=== PATIENT | female | born 1990 | race African-American/Black ===

== ENCOUNTER → 2017-11-04 14:46 | Outpatient (CLI) | payer OTHER, SELFPAY ==
[2017-11-04 18:59] LABS: Chlamydia Trachomatis by PCR Negative (Negative); Neisserai gonorrhoeae by PCR Negative (Negative); Probe Check PASS; Sample Adequacy Control PASS; Specimen Processing Control PASS
[2017-11-09 10:28] LABS: HPV Reflexed? NOT INDICATED
== END ==
PROVIDERS: Visit Provider Obstetrics & Gynecology
DX: Z12.4 Encounter for screening for malignant neoplasm of cervix (principal)
CPT/HCPCS: 87491; 87591; 88175; G0145

== ENCOUNTER 2018-09-29 22:14 | Emergency (ER) | payer OTHER, MEDICAID, SELFPAY ==
[2018-09-29 22:15] VITALS: BP 123/55; PULSE 91; RESP 18; TEMP 36.6; O2SAT 99; BMI 31.2
--- NOTE | 2018-09-29 22:35 | ED.DCSUM_ITS ---
- ER Visit Summary Date of Service: 09/29/18 Chief Complaint: Buttocks rash History of Present Illness: The patient is a 28 F who presents the emergency department tonight with a rash on her buttocks. She notes that that she missed several weeks of her oral control pill. She had a prolonged menstrual period. She states that her buttocks started to become itchy and irritated and occasionally burning. She notes that the skin in the gluteal folds became dark. She has been using antibiotic ointment on it. She took a picture of it and friends told her that she should seek physician evaluation. Physical Examination: Afebrile vital signs stable Gen: Well-nourished well-developed Head: Normocephalic atraumatic Eyes: Perrl EOMI ENT: TMs clear no rhinorrhea moist mucous membranes Neck: Supple no lymphadenopathy no JVD nontender CVS: Regular rate rhythm no murmurs normal S1-S2 Respiratory: No distress clear to auscultation bilaterally chest nontender Abdomen: Soft nontender nondistended normal bowel sounds no masses Back: Nontender Extremity: Nontender no edema Skin: In the gluteal fold there is some skin irritation. Some darkening of the skin. There is some mild excoriation Neuro: alert orientated ?3 CN II-XII intact normal strength sensation reflexes gait cerebellar Psych: Normal affect normal mood Emergency Department Course and Treatment: Wonder if there is some component of a yeast dermatitis here. I am going to have her use clotrimazole. Have her follow-up in 1 week. Impression: 1. Yeast candidiasis This note was generated with [employer] dictation software. It may contain incorrect words, spelling, and punctuation that were not noted in review of the chart prior to signing ED Disposition - Plan for ED Patient: Disposition: Home or Assisted Living Instructions: ED Infec Skin Tonia Ch Prescriptions: Clotrimazole [Athlete's Foot] 1 applicatio TP BID 7 Days #60 cream..g. Referrals: Parminder Broussard MD [Primary Care Provider] - 1 Week if not improving
[2018-09-29 22:53] VITALS: BP 123/55; PULSE 91; RESP 18; O2SAT 99
== END 2018-09-29 22:54 | disposition home or self-care (01) ==
LOC: ED 22:47
PROVIDERS: Emergency Provider Emergency Medicine; Family Provider Family Medicine; PCP Family Medicine
DX: B37.2 Candidiasis of skin and nail (principal)
CPT/HCPCS: 99282

== ENCOUNTER → 2019-03-16 | Outpatient (CLI) | payer OTHER, MEDICAID, SELFPAY ==
[2019-03-16 14:12] LABS: Follicle Stimulating Hormone 6.3 mIU/mL; Free T3 2.5 pg/mL (2.18-3.98); Luteinizing Hormone 14.9 mIU/mL; Prolactin 3.1 ng/mL; T4 Free Direct 0.76 ng/dL (0.76-1.46); Thyroid Stim Hormone (TSH) 1.29 uIU/mL (0.358-3.74)
== END | disposition home or self-care (01) ==
LOC: LAB 12:24
PROVIDERS: Family Provider Family Medicine; PCP Family Medicine; Referring Provider Obstetrics & Gynecology; Visit Provider Obstetrics & Gynecology
DX: N91.2 Amenorrhea, unspecified (principal); N92.6 Irregular menstruation, unspecified; Z12.4 Encounter for screening for malignant neoplasm of cervix
CPT/HCPCS: 36415; 83001; 83002; 84146; 84439; 84443; 84481

== ENCOUNTER → 2019-11-23 | Outpatient (CLI) | payer MEDICAID, SELFPAY ==
[2019-10-25 14:06] VITALS: BMI 31.2
[2019-11-23 09:40] LABS: Cholesterol 176 mg/dL (200); Glucose 98 mg/dL (74-106); High Density Lipoprotein 75 mg/dL; Triglycerides 79 mg/dL; Very Low Density Lipoprotein 16 mg/dL (5-40)
[2019-11-23 10:04] LABS: Vitamin D,25 Hydroxy 24.2 ng/mL
== END | disposition home or self-care (01) ==
LOC: LAB 08:33
PROVIDERS: PCP Family Medicine; Referring Provider Obstetrics & Gynecology; Visit Provider Obstetrics & Gynecology
DX: Z13.1 Encounter for screening for diabetes mellitus (principal); Z13.21 Encounter for screening for nutritional disorder; Z13.220 Encounter for screening for lipoid disorders
CPT/HCPCS: 80061; 82306; 82947

== ENCOUNTER 2019-12-11 15:30 | Outpatient (RCR) | payer MEDICAID, SELFPAY ==
[2019-10-25 14:06] VITALS: BMI 31.2
== END 2019-12-18 23:59 ==
LOC: NS 15:30
PROVIDERS: PCP Family Medicine; Visit Provider Obstetrics & Gynecology
DX: Z71.3 Dietary counseling and surveillance (principal); E66.9 Obesity, unspecified; Z68.31 Body mass index [BMI] 31.0-31.9, adult
CPT/HCPCS: 97802; 97803

== ENCOUNTER 2020-01-15 17:29 | Outpatient (RCR) | payer MEDICAID, SELFPAY ==
[2019-10-25 14:06] VITALS: BMI 31.2
[2020-01-01 13:16] VITALS: BMI 31.2
== END 2020-01-18 23:59 ==
LOC: NS 17:29
PROVIDERS: PCP Family Medicine; Visit Provider Obstetrics & Gynecology
DX: E66.9 Obesity, unspecified (principal); Z68.31 Body mass index [BMI] 31.0-31.9, adult
CPT/HCPCS: 97803

== ENCOUNTER 2020-01-30 15:38 | Outpatient (RCR) | payer MEDICAID, SELFPAY ==
[2020-01-01 13:16] VITALS: BMI 31.2
[2020-01-25 08:40] VITALS: BMI 31.2
== END 2020-01-30 23:59 | disposition home or self-care (01) ==
LOC: NS 15:38
PROVIDERS: PCP Family Medicine; Visit Provider Obstetrics & Gynecology
DX: Z71.3 Dietary counseling and surveillance (principal); E66.9 Obesity, unspecified; Z68.31 Body mass index [BMI] 31.0-31.9, adult
CPT/HCPCS: 97803

== ENCOUNTER → 2020-07-14 15:20 | Outpatient (CLI) | payer MEDICAID, SELFPAY ==
[2020-07-14 14:15] VITALS: BMI 30.9
[2020-07-14 16:49] LABS: Absolute Lymphocyte Count 1.65 X10^3/uL (0.83-4.51); Absolute Neutrophil Count 1.8 X10^3/uL (2.0-7.7); Basophil# 0.02 X10^3/uL; Basophil% 0.5 % (0-1); Eosinophil# 0.01 X10^3/uL; Eosinophils% 0.3 % (0-5); Hematocrit 38.7 % (37-47); Hemoglobin 12.3 g/dL (12.0-15.0); Lymphocyte # 1.65 X10^3/ul (4.0); Lymphocyte % 43.9 % (19-41); Mean Corp Hgb Conc 31.8 g/dL (32-36); Mean Corpuscular Hgb 29.6 pg (27.0-32.0); Mean Corpuscular Volume 93.3 fL (81-99); Mean Platelet Vol. 9.4 fl (6.2-12.0); Monocyte# 0.23 X10^3/uL; Monocyte% 6.1 % (0-10); NRBC Flagged by Analyzer 0 % (0-5); Neutrophil # 1.84 X10^3/uL (2.7-7.7); Neutrophil % 48.9 % (47-70); Platelet Count 276 K/mm3 (150-450); RBC Distribution Width SD 44.9 fl (35.1-43.9); Red Blood Count 4.15 M/mm3 (4.2-5.4); White Blood Count 3.8 K/mm3 (4.4-11.0)
[2020-07-14 17:03] LABS: AST(SGOT) 9 U/L (15-37); Alanine Aminotransfer ALT/SGPT 25 U/L (13-56); Albumin, Serum 3.8 g/dL (3.2-5.0); Alkaline Phosphatase 39 U/L (45-117); Anion Gap 6 (5-15); BUN 14 mg/dL (7-18); BUN/Creat Ratio 16.5 RATIO (10-20); Calcium,Total 9.1 mg/dL (8.5-10.1); Chloride 106 mmol/L (98-107); Creatinine, Serum 0.85 mg/dL (0.55-1.02); EST Glomerular Filtration Rate 83 mL/min (>60); Est Glom Filt Rate - Afr Amer 101 mL/min (>60); Globulin 3.8 g/dL (2.2-4.2); Glucose 106 mg/dL (74-106); Potassium 4.1 mmol/L (3.5-5.1); Protein, Total 7.6 g/dL (6.4-8.2); Sodium Level 141 mmol/L (136-145)
[2020-07-14 17:17] LABS: Hemoglobin A1c 5.5 % (3.8-5.6)
== END ==
PROVIDERS: PCP Internal Medicine; Referring Provider Internal Medicine; Visit Provider Internal Medicine
DX: N62 Hypertrophy of breast (principal); Z68.31 Body mass index [BMI] 31.0-31.9, adult
CPT/HCPCS: 36415; 80053; 83036; 85025

== ENCOUNTER → 2021-03-02 | Outpatient (CLI) | payer MEDICAID, SELFPAY ==
[2021-03-05 20:08] LABS: HPV Genotype 16, Aptima Negative (Negative)
[2021-03-05 21:08] LABS: HPV APTIMA, High Risk Positive (Negative); HPV Genotype 18,45 Aptima Positive (Negative)
== END | disposition home or self-care (01) ==
LOC: LABSPEC 13:15
PROVIDERS: PCP Internal Medicine; Visit Provider Obstetrics & Gynecology
DX: Z12.4 Encounter for screening for malignant neoplasm of cervix (principal)
CPT/HCPCS: 87624; 88175; G0145

== ENCOUNTER → 2021-03-04 | Outpatient (CLI) | payer MEDICAID, SELFPAY ==
[2021-03-04 11:06] LABS: Vitamin D,25 Hydroxy 22.6 ng/mL
[2021-03-04 11:22] LABS: Cholesterol 186 mg/dL (200); Glucose 95 mg/dL (74-106); High Density Lipoprotein 90 mg/dL; Thyroid Stim Hormone (TSH) 0.51 uIU/mL (0.358-3.74); Triglycerides 75 mg/dL; Very Low Density Lipoprotein 15 mg/dL (5-40)
== END | disposition home or self-care (01) ==
LOC: LABSPEC 10:12
PROVIDERS: PCP Internal Medicine; Visit Provider Obstetrics & Gynecology
DX: Z13.21 Encounter for screening for nutritional disorder (principal); Z13.220 Encounter for screening for lipoid disorders; Z13.1 Encounter for screening for diabetes mellitus; Z13.29 Encounter for screening for other suspected endocrine disorder
CPT/HCPCS: 36415; 80061; 82306; 82947; 84443

== ENCOUNTER → 2021-03-31 15:34 | Outpatient (CLI) | payer MEDICAID, SELFPAY | PROVIDERS: PCP Internal Medicine; Referring Provider Obstetrics & Gynecology; Visit Provider Obstetrics & Gynecology | DX: R10.2 Pelvic and perineal pain (principal) | CPT/HCPCS: 87086; 87088 ==

== ENCOUNTER → 2021-04-09 11:19 | Outpatient (CLI) | payer MEDICAID, SELFPAY ==
--- NOTE | 2021-04-09 11:20 | US_ITS ---
STUDY: ULTRASOUND OF THE FEMALE PELVIS - COMPLETE REASON FOR EXAM: Female, 31 years old. DYSPARUNIA LMP: TECHNIQUE: Axial and sagittal ultrasound images of the pelvis were obtained transabdominally and transvaginally. TECHNICAL QUALITY: Adequate. COMPARISON: None. FINDINGS: The uterus is retroverted and slightly heterogeneous. It measures 7.4 x 5.8 x 4.5 cm. There is no discrete uterine fibroid. Endometrial stripe measures 0.4 cm in thickness. The right ovary measures 1.5 x 1.1 x 0.6 cm and the left ovary measures 3.8 x 2.6 x 2.1 cm. No focal ovarian lesion is identified on either side. Blood flow to the ovaries was documented. No adnexal masses seen. There is no free fluid in the pelvis. US/Transvaginal Non- IMPRESSION: No discrete uterine fibroid. Unremarkable ovaries. No adnexal mass. Electronically Signed: Humza Lerma MD at 19:28 EDT Tel , Service support ,
--- NOTE | 2021-04-09 11:20 | US_ITS ---
STUDY: ULTRASOUND OF THE FEMALE PELVIS - COMPLETE REASON FOR EXAM: Female, 31 years old. DYSPARUNIA LMP: TECHNIQUE: Axial and sagittal ultrasound images of the pelvis were obtained transabdominally and transvaginally. TECHNICAL QUALITY: Adequate. COMPARISON: None. FINDINGS: The uterus is retroverted and slightly heterogeneous. It measures 7.4 x 5.8 x 4.5 cm. There is no discrete uterine fibroid. Endometrial stripe measures 0.4 cm in thickness. The right ovary measures 1.5 x 1.1 x 0.6 cm and the left ovary measures 3.8 x 2.6 x 2.1 cm. No focal ovarian lesion is identified on either side. Blood flow to the ovaries was documented. No adnexal masses seen. There is no free fluid in the pelvis. US/Pelvic (Non ) IMPRESSION: No discrete uterine fibroid. Unremarkable ovaries. No adnexal mass. Electronically Signed: Humza Lerma MD at 19:28 EDT Tel , Service support ,
== END ==
PROVIDERS: PCP Internal Medicine; Referring Provider Obstetrics & Gynecology; Visit Provider Obstetrics & Gynecology
DX: R10.2 Pelvic and perineal pain (principal)
CPT/HCPCS: 76830; 76856

== ENCOUNTER 2021-04-30 10:45 | Emergency (ER) | payer OTHER, MEDICAID, SELFPAY ==
[2021-04-30 10:46] VITALS: BP 128/82; PULSE 88; RESP 16; TEMP 36.4; O2SAT 100; BMI 29.9
[2021-04-30] MEDS: Diphth,Pertuss(Acell),Tet Vac 0.5 ML Vial IM (11:49)
--- NOTE | 2021-04-30 11:53 | EDS_ITS ---
HPI History of Present Illness HPI Narrative: Patient presents with a laceration to her left thumb that occurred today. Patient states she was using a knife when it slipped and cut her left thumb. Patient is unsure of her last tetanus. Patient states it is over the ulnar aspect of the distal phalanx of her left thumb. Patient describes pain as aching and throbbing. Patient states the bleeding improved with pressure. Patient admits to some numbness and tingling initially but states this is improving. Chief Complaint: Laceration Informant: patient Occured/Mechanism Comment: Accidentally cut with a knife Onset/Context/Timing Onset: Today Context: Sudden Onset Timing: Continuous Quality of Pain: Aching and Throbbing Location: Left thumb Worsened by: Nothing Relieved by: Pressure Associated Symptoms Associated Symptoms: Positive for Parasthesia; Negative for Weakness and Loss of Funtion Narrative Tetanus Immunization: Unknown [facility] Medical History Elevated blood pressure reading without diagnosis of hypertension HPV (human papilloma virus) infection Irregular menses Lab test negative for COVID-19 virus Migraine Vitamin D deficiency Home Medications drospirenone 3 mg-ethinyl estradiol 0.02 mg tablet 1 tab PO QDAY #28 tab 03/02/21 [Rx Last Taken Unknown] cholecalciferol (vitamin D3) 50 mcg (2,000 unit) capsule 50 mcg PO DAILY 03/25/21 [History Last Taken Unknown] phentermine 37.5 mg tablet 37.5 mg PO QDAY #30 tab 03/25/21 [Rx Last Taken Unknown] Allergy/AdvReac Type Severity Reaction Status Date / Time No Known Allergies Allergy Verified 03/31/21 12:31 Family History Father Diabetes Grandmother Diabetes Uncle Diabetes Surgical History Ganglion cyst Social History Smoking Status: Never smoker alcohol intake: current details: social substance use type: does not use caffeine: Yes what type of physical activity do you participate in: none seatbelt use: always do you feel safe at home: Yes additional social history: Dietary at [facility] ROS ROS ED Constitutional Constitutional ED: Denies chills or fever(s) Eyes Eyes: Denies blurry vision or change in vision ENT ENT ED: Denies rhinorrhea or sore throat Cardiovascular Cardiovascular: Denies chest pain or palpitations Respiratory/Chest Respiratory/Chest: Denies cough or dyspnea Gastrointestinal Gastrointestinal: Denies nausea or vomiting Genitourinary Genitourinary ED: Denies dysuria or hematuria Musculoskeletal Musculoskeletal: Denies back pain or neck pain Integumentary Denies abscess or rash Neurologic Neurologic: Denies headache(s) or weakness Allergic/Immunologic Allergic/Immunologic ED: Denies mouth swelling or urticaria EXAM Physical Exam Const Vital Signs: 04/30/21 10:46 Temperature 97.6 F L Temperature Source Temporal Pulse Rate 88 Respiratory Rate 16 Blood Pressure 128/82 H Blood Pressure Mean 97 Pulse Ox 100 Oxygen Delivery Method Room Air Positive well nourished and well developed General Appearance ED: well developed HEENT Reports moist mucous membranes Extremity Extremity Narrative: There is a 1.5 cm full-thickness linear laceration over the ulnar aspect of the distal phalanx of the left thumb. There is minimal bleeding. There is no foreign body noted. There is mild gapping of the wound margins. There is full range of motion of the IP and MP joints. Sensation was intact to light touch in all digits. Capillary refill was less than 2 seconds in all digits. Neuro oriented x3, CN's II-XII intact bilaterally, moves all extremities and no focal motor deficits Sensorium / Orientation: alert MDM MDM MDM Narrative Medical decision making narrative: The wound was cleaned with chlorhexidine. The wound was explored. There were no foreign bodies. There is minimal gapping of the wound margins. The wound was closed with Dermabond skin adhesive. Patient tolerated the procedure well. Patient was given a tetanus booster. Patient was instructed to keep the wound clean and dry. Patient was instructed to follow-up with her primary care physician in 5 to 7 days. Patient understood and was agreeable with the plan. All questions were answered. Procedures Lacerations Left thumb laceration: Depth: Skin Shape: Linear Prep: Sterile Conditions and Chlorhexadine Laceration repair: Dermabond and Wound explored Discharge Plan Triage Chief Complaint: Laceration ED Provider: Sajan Walker Dx/Rx/DC Orders Clinical Impression: Laceration of thumb, left Instructions: ED Laceration, Extremity: Skin Glue Prescriptions: No Action drospirenone-ethinyl estradiol 3-0.02 mg tablet 1 tab PO QDAY Qty: 28 RF: 12 cholecalciferol (vitamin D3) 50 mcg (2,000 unit) capsule 50 mcg PO DAILY RF: 0 phentermine [Adipex-P] 37.5 mg tablet 37.5 mg PO QDAY Qty: 30 RF: 0 Primary Care Provider: Tish Saleem Referrals: Tish Saleem MD [Primary Care Provider] - 3-5 Days Disposition Disposition: Home, Self Care
[2021-04-30 12:14] VITALS: BP 118/74; PULSE 73; RESP 15; O2SAT 98
== END 2021-04-30 12:15 | disposition home or self-care (01) ==
PROVIDERS: Emergency Provider Emergency Medicine; PCP Internal Medicine
DX: S61.012A Laceration without foreign body of left thumb without damage to nail, initial encounter (principal); Z23 Encounter for immunization; W26.0XXA Contact with knife, initial encounter; Y93.89 Activity, other specified; Y92.89 Other specified places as the place of occurrence of the external cause; Y99.0 Civilian activity done for income or pay
CPT/HCPCS: 12001; 90471; 90715; 99282

== ENCOUNTER 2021-08-03 14:55 | Outpatient (CLI) | payer MEDICAID, SELFPAY ==
[2021-08-03 16:43] LABS: Progesterone Level 0.54 ng/mL (See Comment)
== END 2021-08-03 23:59 | disposition home or self-care (01) ==
LOC: LAB 14:56
PROVIDERS: PCP Internal Medicine; Visit Provider Obstetrics & Gynecology
DX: N97.0 Female infertility associated with anovulation (principal)
CPT/HCPCS: 36415; 84144

== ENCOUNTER 2021-10-02 11:18 | Outpatient (CLI) | payer MEDICAID, SELFPAY ==
--- NOTE | 2021-10-02 11:20 | US_ITS ---
STUDY: ULTRASOUND OF THE FEMALE PELVIS - COMPLETE REASON FOR EXAM: Female, 31 years old. Pelvic pain. LMP: 09/25/2021. TECHNIQUE: Transabdominal and Transvaginal TECHNICAL QUALITY: Adequate. COMPARISON: None. FINDINGS: The uterus is retroverted and is in a midline position. The uterus measures 7.4 cm x 6.1 cm x 4.6 cm. Normal uterine cervix. The endometrium measures 8 mm in thickness, and is hyperechoic. There is no demonstrated endometrial mass. The myometrium is heterogeneous suggestive of fibroid change although no focal fibroid is seen. I.U.D. - The patient does not have an I.U.D. The right ovary is visualized. The right ovary measures 3.8 cm x 3.2 cm x 2 cm. There is no right ovarian cyst or ovarian mass. There is no visualized right adnexal mass or complex lesion. There is normal arterial and normal venous vascularity. The left ovary is visualized. The left ovary measures 3.7 cm x 4.7 cm x 1.8 cm. There is no left ovarian cyst or ovarian mass. There is no visualized left adnexal mass or complex lesion. There is normal arterial and normal venous vascularity. There is minimal fluid in the cul-de-sac. The pre void volume of the bladder was 472 ml. US/Pelvic (Non ) IMPRESSION: Heterogeneous echotexture of the myometrium suggestive of fibroid change although no focal fibroid is seen. Electronically Signed: Augie Croft MD at 13:57 EDT ,
--- NOTE | 2021-10-02 11:20 | US_ITS ---
STUDY: ULTRASOUND OF THE FEMALE PELVIS - COMPLETE REASON FOR EXAM: Female, 31 years old. Pelvic pain. LMP: 09/25/2021. TECHNIQUE: Transabdominal and Transvaginal TECHNICAL QUALITY: Adequate. COMPARISON: None. FINDINGS: The uterus is retroverted and is in a midline position. The uterus measures 7.4 cm x 6.1 cm x 4.6 cm. Normal uterine cervix. The endometrium measures 8 mm in thickness, and is hyperechoic. There is no demonstrated endometrial mass. The myometrium is heterogeneous suggestive of fibroid change although no focal fibroid is seen. I.U.D. - The patient does not have an I.U.D. The right ovary is visualized. The right ovary measures 3.8 cm x 3.2 cm x 2 cm. There is no right ovarian cyst or ovarian mass. There is no visualized right adnexal mass or complex lesion. There is normal arterial and normal venous vascularity. The left ovary is visualized. The left ovary measures 3.7 cm x 4.7 cm x 1.8 cm. There is no left ovarian cyst or ovarian mass. There is no visualized left adnexal mass or complex lesion. There is normal arterial and normal venous vascularity. There is minimal fluid in the cul-de-sac. The pre void volume of the bladder was 472 ml. US/Transvaginal Non- IMPRESSION: Heterogeneous echotexture of the myometrium suggestive of fibroid change although no focal fibroid is seen. Electronically Signed: Augie Croft MD at 13:57 EDT ,
== END 2021-10-02 23:59 | disposition home or self-care (01) ==
LOC: US 11:19
PROVIDERS: PCP Internal Medicine; Visit Provider Obstetrics & Gynecology
DX: R10.2 Pelvic and perineal pain (principal)
CPT/HCPCS: 76830; 76856; 93976

== ENCOUNTER → 2022-01-15 | Outpatient (CLI) | payer MEDICAID, SELFPAY ==
[2022-01-15 11:03] LABS: Amphetamine Urine VISTA NEGATIVE (<1000 ng/mL); Barbiturate Urine VISTA NEGATIVE (< 200 ng/mL); Benzodiazepine Urine VISTA NEGATIVE (< 200 ng/mL); Cocaine Urine VISTA NEGATIVE (< 300 ng/mL); Ecstacy Urine VISTA NEGATIVE (< 500 ng/mL); Methadone Urine VISTA NEGATIVE (< 300 ng/mL); PCP Urine VISTA NEGATIVE (< 25 ng/mL); THC Urine VISTA NEGATIVE (< 50 ng/mL); Vista UDS pH Range 6
[2022-01-18 22:06] LABS: Chlamydia By Nucleic Acid AMP Negative (Negative)
[2022-01-18 23:29] LABS: Gonococcus By Nucleic Acid AMP Negative (Negative)
== END | disposition home or self-care (01) ==
LOC: LABSPEC 09:59
PROVIDERS: PCP Internal Medicine; Visit Provider Obstetrics & Gynecology
DX: Z34.90 Encounter for supervision of normal pregnancy, unspecified, unspecified trimester (principal)
CPT/HCPCS: 80307; 87086; 87491; 87591

== ENCOUNTER → 2022-01-21 | Outpatient (CLI) | payer MEDICAID, SELFPAY ==
[2022-01-21 14:52] LABS: Absolute Lymphocyte Count 1.64 X10^3/uL (0.83-4.51); Absolute Neutrophil Count 5.1 X10^3/uL (2.0-7.7); Basophil# 0.02 X10^3/uL; Basophil% 0.3 % (0-1); Eosinophil# 0.02 X10^3/uL; Eosinophils% 0.3 % (0-5); Hematocrit 34.3 % (37-47); Hemoglobin 11.3 g/dL (12.0-15.0); Lymphocyte # 1.64 X10^3/ul (0.83-4.51); Lymphocyte % 22.6 % (19-41); Mean Corp Hgb Conc 32.9 g/dL (32-36); Mean Corpuscular Hgb 29.9 pg (27.0-32.0); Mean Corpuscular Volume 90.7 fL (81-99); Mean Platelet Vol. 9.1 fl (6.2-12.0); Monocyte# 0.41 X10^3/uL; Monocyte% 5.7 % (0-10); NRBC Flagged by Analyzer 0 % (0-5); Neutrophil # 5.07 X10^3/uL (2.7-7.7); Neutrophil % 69.9 % (47-70); Platelet Count 262 K/mm3 (150-450); RBC Distribution Width SD 46.3 fl (35.1-43.9); Red Blood Count 3.78 M/mm3 (4.2-5.4); White Blood Count 7.3 K/mm3 (4.4-11.0)
[2022-01-21 15:29] LABS: Glucose Challenge Gest 1H 50g 149 mg/dL (70-140)
[2022-01-21 16:01] LABS: HIV - WCH Non-Reactive (Nonreactive); Hepatitis B Surface Antigen Non-Reactive (Nonreactive); Hepatitis C Antibody Non-Reactive (Nonreactive); Rubella IgG Reactive (Nonreactive); Syphilis Antibodies Non-reactive
== END | disposition home or self-care (01) ==
LOC: LAB 14:30
PROVIDERS: PCP Internal Medicine; Referring Provider Obstetrics & Gynecology; Visit Provider Obstetrics & Gynecology
DX: O99.210 Obesity complicating pregnancy, unspecified trimester (principal); E66.09 Other obesity due to excess calories; Z68.31 Body mass index [BMI] 31.0-31.9, adult
CPT/HCPCS: 36415; 82950; 85025; 86703; 86762; 86780; 86803; 86850; 86900; 86901; 87340

== ENCOUNTER → 2022-01-25 | Outpatient (CLI) | payer MEDICAID, SELFPAY ==
[2022-01-25 11:35] LABS: NATERA MAILED SPECIMEN
== END | disposition home or self-care (01) ==
LOC: LAB 10:33
PROVIDERS: PCP Internal Medicine; Referring Provider Obstetrics & Gynecology; Visit Provider Obstetrics & Gynecology
DX: Z34.81 Encounter for supervision of other normal pregnancy, first trimester (principal)
CPT/HCPCS: 36415

== ENCOUNTER → 2022-02-12 | Outpatient (CLI) | payer MEDICAID, SELFPAY ==
[2022-02-12 11:39] LABS: Glucose GTT-Gestation. Fasting 89 mg/dL (<105)
[2022-02-12 12:14] LABS: Glucose GTT-Gestational 1 Hr 128 mg/dL (<190)
[2022-02-12 13:00] LABS: Glucose GTT-Gestational 2 Hr 118 mg/dL (<165)
[2022-02-12 14:02] LABS: Glucose GTT-Gestational 3 Hr 113 L (<145)
== END | disposition home or self-care (01) ==
LOC: LAB 10:02
PROVIDERS: PCP Internal Medicine; Referring Provider Obstetrics & Gynecology; Visit Provider Obstetrics & Gynecology
DX: Z13.1 Encounter for screening for diabetes mellitus (principal)
CPT/HCPCS: 36415; 82951; 82952

== ENCOUNTER 2022-03-12 12:00 | Outpatient (RCR) | payer MEDICAID, SELFPAY ==
--- NOTE | 2022-02-05 12:51 | HP.PTEVAL ---
Patient's Visit Information PIERCE AYOUB is a 31 year old F referred to Physical Therapy by Dr. Hazel Schmitz DO with a diagnosis of SCIATICA ,UNSPECIFIED ,ENCOUNTER FOR SUPERVISION NORMAL PREGNANCEY. Date of Evaluation: 02/05/22 Physical Therapist: Mohamud Del Rosario, PT, Cert MDT, OCS - Visit Plan Frequency: 2x /Week Duration: 4 Weeks Plan: NO MODALTIES . PT INTERVETIONS GRADED POSTURAL EX'S ,DLS ,SI JOINT EX'S ,LE STRENGTHNEING/FLEXABLITY AND MHP - Subjective This 31 y/o female presents physical therapy with sciatica pain. Patient is 14 weeks , Patient has had pain since 2nd son from epidural possible. Patient after 2nd ,patient had pain in back symptoms progressively got better, Most recently , developed back pain during this . Pain located left LS radiates to buttock -hamstrings. Seen DR nelson PT. Unable to take MEDS. Aggravating factors standing ,lifting, bending moving affects job demands and housework tasks ,sitting extended Alleviating heat. Denies paresthesia/tingling. Coughing/sneezing-. Bowel/bladder -. Patient pain affects sleeping . Patient pain affects QOL and sleeping . Patient condition with pain affects job demands and housework tasks. SOCIAL: . VOCATION: [employer] Dietary - Pain Left Back Pain Intensity (Out of 10): 9 Left Lower Extremity Pain Intensity (Out of 10): 10 Pain Intensity Range: 10 - Objective POSTURE: mild forward posture. GAIT: reciprocal pattern slow juan pablo antalgic gait. PALPATION: tender SI/LS ,piriformis ,greater trochanteric. NEURO: intact ,reflexes L3-4,L4-5,L4-5 1/3. FLEXABILITY: hamstrings min tight, piriformis mod tight. MMT: quad/hams 4/5 ,peak force hip flexion right 17.7,left 12.3 , hip abduction right 13.8,left 10 .4. SPECIAL TEST: SI compression + ,hip abduction/add isometrics + , - Special Tests L/S Slump test left side: Negative L/S Slump test right side: Negative L/S Left Straight Leg Raise: Negative L/S Right Straight Leg Raise: Negative Lumbar Standing: Flexion - Mechanical Response: No effect Lumbar Standing: Flexion - Symptoms During Testing: Abolishes Lumbar Standing: Flexion - Symptoms After Testing: No worse Comments:: NW Lumbar Standing: Extension - Mechanical Response: No effect Lumbar Standing: Extension - Symptoms During Testing: No effect Lumbar Standing: Extension - Symptoms After Testing: No effect Lumbar Standing: Right Side Glides - Mechanical Response: No effect Lumbar Standing: Right Side [place] - Symptoms During Testing: Increases Lumbar Standing: Right Side [place] - Symptoms After Testing: No worse Lumbar Standing: Left Side [place] - Mechanical Response: No effect Lumbar Standing: Left Side [place] - Symptoms During Testing: Increases Lumbar Standing: Left Side [place] - Symptoms After Testing: No worse - Balance/Special Test Scores Oswestry Low Back Score: 29 - Goals Goal 1:: Patient to be Independent with HEP Goal Time Frame: 4-6 Weeks Goal 2:: Patient to be demonstrate 50% improvement with with decrease pain and improved function. Goal Time Frame: 4-6 Weeks Goal 3:: Patient to be posture for ADL and job demands. Goal Time Frame: 4-6 Weeks Goal 4:: Patient to improve lumbar ROM for function of recovery Goal Time Frame: 4-6 Weeks Goal 5:: Patient to improve back oswestry score by 5 points or > to improve QOL Goal Time Frame: 4-6 Weeks Goal 6:: Patient is able to stand/walk with min limitations 60% to perform ADLS' and job demnads. Goal Time Frame: 4-6 Weeks - Rehabilitation Potential Physical Therapy Diagnosis: This patient who is 14 weeks with pain from being with pain during positioning and positioning , worse standing/walking affecting ADLS and job demands Rehabilitation Potential: Good - Anticipated Interventions Patient/Client Instruction: Educate patient on: Condition, Plan of Care For the Purpose of:: To decrease pain, To increase ROM, To improve muscle performance and motor function, To improve ability to perform ADL's, To increase tolerance to activity/condition/position, To improve ability of physical actions for home/community/work/leisure, To improve health of tissue, To decrease soft tissue restriction, To increase flexibility/ROM, To reduce risk of recurrence, To prevent re-injury, To improve tolerance to ADL's Therapeutic Exercise to Include: Strength training, Postural training, Flexibilty training, Dynamic Lumbar Stabilization Comment: LE For the Purpose of:: To decrease pain, To improve ability to perform ADL's, To increase tolerance to activity/condition/position, To improve ability of physical actions for home/community/work/leisure, To improve health of tissue, To decrease soft tissue restriction, To increase flexibility/ROM, To improve safety with gait, To reduce risk of recurrence, To improve tolerance to ADL's Thank you for the opportunity to evaluate your patient. For Medicare and Medicare HMO plans, please review the plan of care and approve it. It will need to be FAXED BACK to us at [phone] for Medicare purposes. For Medicare only, by signing this I certify the plan of care. Please let me know if there are questions or concerns regarding this plan of care. Physician Signature: Date:
--- NOTE | 2022-06-11 10:39 | HP.PT.NRP ---
PIERCE DUBON was seen in my office for initial evaluation on 02/05/22. The following Plan of Care was established for this patient: Initial Frequency: 2x /Week Initial Duration: 4 Weeks Patient/Client Instruction: Educate patient on: Condition, Plan of Care For the Purpose of:: To decrease pain, To increase ROM, To improve muscle performance and motor function, To improve ability to perform ADL's, To increase tolerance to activity/condition/position, To improve ability of physical actions for home/community/work/leisure, To improve health of tissue, To decrease soft tissue restriction, To increase flexibility/ROM, To reduce risk of recurrence, To prevent re-injury, To improve tolerance to ADL's Therapeutic Exercise to Include: Strength training, Postural training, Flexibilty training, Dynamic Lumbar Stabilization For the Purpose of:: To decrease pain, To improve ability to perform ADL's, To increase tolerance to activity/condition/position, To improve ability of physical actions for home/community/work/leisure, To improve health of tissue, To decrease soft tissue restriction, To increase flexibility/ROM, To improve safety with gait, To reduce risk of recurrence, To improve tolerance to ADL's This patient was last seen in our office . Pertinent comments regarding their Physical therapy will appear below: Patient seen for LBP from being with HEP At this point I will be discontinuing this patient from physical therapy. I would be happy to see this patient again in the future if found appropriate by the physician. Thank you! Mohamud Del Rosario, PT, Cert MDT, OCS Balance/Gait/Functional tests - Balance/Special Test Scores Oswestry Low Back Score: 19
== END 2022-03-12 19:00 | disposition home or self-care (01) ==
LOC: PT 12:00
PROVIDERS: PCP Internal Medicine; Referring Provider Obstetrics & Gynecology; Visit Provider Obstetrics & Gynecology
DX: O99.891 Other specified diseases and conditions complicating pregnancy (principal); M54.30 Sciatica, unspecified side; Z3A.00 Weeks of gestation of pregnancy not specified
CPT/HCPCS: 97110; 97162

== ENCOUNTER → 2022-03-19 | Outpatient (CLI) | payer MEDICAID, SELFPAY ==
--- NOTE | 2022-03-19 14:30 | US_ITS ---
STUDY: SECOND AND THIRD TRIMESTER OBSTETRICAL ULTRASOUND REASON FOR EXAM: Female, 32 years old . anatomy and cervical length. LMP: 10/31/2021 TECHNIQUE: Transabdominal and Transvaginal TECHNICAL QUALITY: Adequate. PRIOR ULTRASOUND: None. FINDINGS: There is a single intrauterine fetus. The fetus is in a cephalic presentation. There is demonstrated cardiac activity with a heart rate of 145 bpm. There is a normal amniotic fluid volume. The largest amniotic fluid pocket measures 4.3 cm x 7.4 cm. The amniotic fluid index (TOÑO) is within normal limits. The placenta is posterior in location and is not low lying. There are Grade 0 placental changes. The cervix measures 3.5 cm in length. The adnexal regions are not visualized. BIOMETRY: BPD: 4.55 cm: 19 weeks, 5 days HC: 17 cm: 19 weeks, 4 days AC: 14.2 cm: 9 weeks, 4 days FL: 3.2 cm: 20 weeks, 0 days CI: 77% FL/BPD: 70.4% FL/HC: FL/AC: 22.6% HC/AC: 1. age by current US: 19 weeks, 4 days. PAWAN by current US: 08/09/2022. Estimated weight: 311 grams, +/- 47 grams, 39.3 %. Age by LMP: 19 weeks, 6 days. PAWAN by LMP: 08/07/2022. ANATOMY: Gender: Female Cranium: Normal lateral ventricles. Normal choroid plexus. Normal cerebellum. Normal cisterna magna. Normal face, nose and lips. Chest: Normal 4-chamber heart. Abdomen/Pelvis: Normal diaphragm. Normal stomach. Normal abdominal wall. Normal cord insertion. Normal 3 vessel cord. Normal kidneys. Normal bladder. Spine: Normal cervical spine. Normal thoracic spine. Normal lumbar spine. Normal sacrum. Extremities: Normal bilateral upper extremities. Normal bilateral lower extremities. IMPRESSION: Single live intrauterine gestation with a mean gestational age of 19 weeks and 4 days. Electronically Signed: Augie Croft MD at 9:11 EDT , STUDY: FIRST TRIMESTER OBSTETRICAL ULTRASOUND REASON FOR EXAM: Female, 32 years old . Cervical length. LMP: 10/31/2021 TECHNIQUE: Transvaginal TECHNICAL QUALITY: Adequate. PRIOR ULTRASOUND: None. FINDINGS: Cervical length measures 3.5 cm. US/OB Anatomy Scan IMPRESSION: Cervical length measures 3.5 cm Electronically Signed: Augie Croft MD at 9:12 EDT ,
== END | disposition home or self-care (01) ==
LOC: US 14:29
PROVIDERS: PCP Internal Medicine; Referring Provider Obstetrics & Gynecology; Visit Provider Obstetrics & Gynecology
DX: Z34.92 Encounter for supervision of normal pregnancy, unspecified, second trimester (principal); Z3A.19 19 weeks gestation of pregnancy
CPT/HCPCS: 76805; 76817

== ENCOUNTER → 2022-05-07 | Outpatient (CLI) | payer MEDICAID, SELFPAY ==
[2022-05-07 11:17] LABS: Absolute Lymphocyte Count 1.11 X10^3/uL (0.83-4.51); Absolute Neutrophil Count 4.4 X10^3/uL (2.0-7.7); Basophil# 0.02 X10^3/uL; Basophil% 0.3 % (0-1); Eosinophil# 0.02 X10^3/uL; Eosinophils% 0.3 % (0-5); Hematocrit 34.9 % (37-47); Hemoglobin 11.3 g/dL (12.0-15.0); Lymphocyte # 1.11 X10^3/ul (0.83-4.51); Lymphocyte % 18.3 % (19-41); Mean Corp Hgb Conc 32.4 g/dL (32-36); Mean Corpuscular Hgb 30.1 pg (27.0-32.0); Mean Corpuscular Volume 93.1 fL (81-99); Mean Platelet Vol. 9.3 fl (6.2-12.0); Monocyte# 0.36 X10^3/uL; NRBC Flagged by Analyzer 0 % (0-5); Neutrophil # 4.36 X10^3/uL (2.7-7.7); Neutrophil % 72.1 % (47-70); Platelet Count 219 K/mm3 (150-450); RBC Distribution Width CV 14.9 % (11.6-14.6); RBC Distribution Width SD 50.7 fl (35.1-43.9); Red Blood Count 3.75 M/mm3 (4.2-5.4); White Blood Count 6.1 K/mm3 (4.4-11.0)
[2022-05-07 11:41] LABS: Glucose Challenge Gest 1H 50g 164 mg/dL (70-140)
[2022-05-07 14:30] LABS: HIV - WCH Non-Reactive (Nonreactive); Syphilis Antibodies Non-reactive
== END | disposition home or self-care (01) ==
LOC: LAB 10:24
PROVIDERS: PCP Internal Medicine; Visit Provider Obstetrics & Gynecology
DX: Z34.90 Encounter for supervision of normal pregnancy, unspecified, unspecified trimester (principal)
CPT/HCPCS: 36415; 82950; 85025; 86703; 86780

== ENCOUNTER 2022-05-21 10:01 | Outpatient (CLI) | payer MEDICAID, SELFPAY ==
[2022-05-21 11:29] LABS: Glucose GTT-Gestation. Fasting 91 mg/dL (<105)
[2022-05-21 12:48] LABS: Glucose GTT-Gestational 1 Hr 163 mg/dL (<190)
[2022-05-21 12:57] LABS: Glucose GTT-Gestational 2 Hr 144 mg/dL (<165)
[2022-05-21 16:21] LABS: Glucose GTT-Gestational 3 Hr 133 L (<145)
== END 2022-05-21 23:59 | disposition home or self-care (01) ==
PROVIDERS: PCP Internal Medicine; Referring Provider Obstetrics & Gynecology; Visit Provider Obstetrics & Gynecology
DX: Z13.1 Encounter for screening for diabetes mellitus (principal)
CPT/HCPCS: 36415; 82951; 82952

== ENCOUNTER 2022-06-26 11:15 | Outpatient (CLI) | payer MEDICAID, SELFPAY ==
[2022-06-26] VITALS (23 sets, daily range): BP systolic 160; BP diastolic 86–93; PULSE 68–109; TEMP 36.8; O2SAT 82–100; BMI 39.9
[2022-06-26 13:14] LABS: Color, Urine Yellow (Yellow); Glucose, Dipstick Normal (Normal); Ketone-Dipstick Negative (Negative); Leukocyte Esterase-Dipstick Negative /ul (Negative); Nitrite-Dipstick Negative (Negative); Occult Blood-Urine 50 /ul (Negative); Protein-Dipstick Negative (Negative); Urine Bilirubin Dipstick Negative (Negative); Urine Clarity Clear (Clear); Urine Urobilinogen Normal (Normal)
--- NOTE | 2022-06-27 06:20 | OB.TRI.PN ---
Progress Notes Progress Note: Patient presents for triage evaluation secondary to dizziness FHT: 150 Moderate variability reactive no decelerations category I tracing [place]: no regular Contractions Assessment and plan: dizziness Reactive NST, reassuring maternal and status patient discharged to home to follow-up as scheduled. See problem list details for additional plan information. Laboratory Studies: Laboratory Tests 06/26/22 Range/Units 13:05 Urine Color Yellow (Yellow) Urine Clarity Clear (Clear) Urine pH 7.0 (5.0 - 8.0) Ur Specific [place] 1.010 (1.002-1.030) Urine Protein Negative (Negative) mg/dl Urine Glucose (UA) Normal (Normal) mg/dl Urine Ketones Negative (Negative) mg/dl Urine Occult Blood 50 H (Negative) /ul Urine Nitrite Negative (Negative) Urine Bilirubin Negative (Negative) mg/dL Urine Urobilinogen Normal (Normal) mg/dl Ur Leukocyte Esterase Negative (Negative) /ul Charges/Coding Procedures Urinary/Genital [id number]: [id number] non-stress test Interp
== END 2022-06-26 14:00 | disposition home or self-care (01) ==
LOC: WPOUT 11:19 → WP 11:20
PROVIDERS: PCP Internal Medicine; Referring Provider Obstetrics & Gynecology; Visit Provider Obstetrics & Gynecology
DX: O26.899 Other specified pregnancy related conditions, unspecified trimester (principal); R42 Dizziness and giddiness; Z3A.00 Weeks of gestation of pregnancy not specified
CPT/HCPCS: 59025; 59050; 81002; 99221; G0378

== ENCOUNTER → 2022-07-12 | Outpatient (CLI) | payer MEDICAID, SELFPAY ==
--- NOTE | 2022-07-12 13:00 | US_ITS ---
STUDY: SECOND AND THIRD TRIMESTER OBSTETRICAL ULTRASOUND - LIMITED REASON FOR EXAM: Female, 32 years old obesity -- 36 weeks LMP: 10/31/2021. PRIOR ULTRASOUND: Comparison is made with prior study dated 03/19/2022. TECHNIQUE: Transabdominal TECHNICAL QUALITY: Adequate. FINDINGS: There is a single intrauterine fetus. The fetus is in a cephalic presentation. There is demonstrated cardiac activity with a heart rate of 152 bpm. There is a normal amniotic fluid volume. The largest amniotic fluid pocket measures 9.6 cm. The amniotic fluid index (TOÑO) is 17.9 cm. The placenta is posterior in location and is not low lying. There are Grade 1 placental changes. The cervix was not measured due to the head position. BIOMETRY: BPD: 9.0 cm: 36 weeks, 3 days HC: 32.6 cm: 37 weeks, 0 days AC: 34.7 cm: 38 weeks, 5 days FL: 7.3 cm: 37 weeks, 2 days Age by LMP: 36 weeks, 2 days. PAWAN by LMP: 08/07/2022. age by prior US: 36 weeks, 0 days. PAWAN by prior US: 08/09/2022. age by current US: 37 weeks, 0 days. PAWAN by current US: 08/02/2022. Estimated weight: 3378 grams, +/- 507 grams, 91 percentile. US/OB Limited With Biometrics IMPRESSION: Single live intrauterine gestation with a mean gestational age of 36 weeks. The measurements obtained today following the normal expected range. Electronically Signed: Augie Croft MD at 15:14 EST ,
== END | disposition home or self-care (01) ==
PROVIDERS: PCP Internal Medicine; Referring Provider Obstetrics & Gynecology; Visit Provider Obstetrics & Gynecology
DX: O99.210 Obesity complicating pregnancy, unspecified trimester (principal); Z3A.36 36 weeks gestation of pregnancy
CPT/HCPCS: 76816; 87077; 87081; 87186

== ENCOUNTER 2022-07-26 18:38 | Outpatient (CLI) | payer MEDICAID, SELFPAY ==
[2022-07-26 18:51] VITALS: BMI 41.8
[2022-07-26 19:08] VITALS: BP 110/53; PULSE 95; TEMP 37
[2022-07-26 19:30] VITALS: BP 120/64; PULSE 99; TEMP 37.2; O2SAT 99
--- NOTE | 2022-07-26 23:48 | OB.TRI.HP_ITS ---
HPI - General HPI Narrative PIERCE DUBON, is a 32 F who presents with decreased FM at at 38+2. Maternal Data Information PAWAN Calculator Estimated Delivery Date Method Current WG Current Estimate 08/07/22 LMP (Certain) 38w 2d Other Estimates 08/03/22 Ultrasound #1 38w 6d 08/11/22 Ultrasound #[address] [facility] Medical History Elevated blood pressure reading without diagnosis of hypertension HPV (human papilloma virus) infection Irregular menses Lab test negative for COVID-19 virus Migraine Vitamin D deficiency Home Medications multivitamin 1 tab PO DAILY prenancy 10/23/21 [History Last Taken 07/26/22 15:00] B.coagulan,subtilis 1 bill. cell-inulin 1 gram-vit C 15 mg chew tablet (Culturelle Probiotic-Prebiotic) 1 tab PO DAILY gut health 07/26/22 [History Last Taken Unknown] lactobacillus combination no.9 4 billion cell capsule (Adult 50 Plus Probiotic) 4,000 mmu cells PO DAILY gut health 07/26/22 [History Last Taken Unknown] Allergy/AdvReac Type Severity Reaction Status Date / Time No Known Allergies Allergy Verified 07/22/22 13:07 Family History Father Diabetes Grandmother Diabetes Uncle Diabetes Surgical History Ganglion cyst Social History adopted: No household members: spouse, family and children number of children: 2 current occupational status: employed current occupation: [employer] Dietary current occupational exposures/hazards: No pets and animals: No history of recent travel: Yes ([place], [place]) out of state: Yes out of country: No sexually active: Yes Smoking Status: Never smoker alcohol intake: former details: social substance use type: does not use caffeine: Yes Type: coffee Number of servings: 1 what type of physical activity do you participate in: none seatbelt use: always do you feel safe at home: Yes additional social history: Dietary at [employer] History 3 Elective abortions Hx Para 2 Spontaneous abortions Hx # Term Pregnancies Ectopic pregnancies Hx # Pregnancies Multiple births # of living children 2 Past Pregnancies Del. Date Name GA/Weeks Outcome Route Bth Weight Gen Labor Lgth Anesthesia Del Locatn Provider FOB Unknown 2009 Lizeth live - full term Unknown 2014 Kenneth Bhandari live - full term Visit Details Expected Delivery Route/Plan Labor Preferences- CB/BF classes: [] labor support person: [] labor intervention preferences: [] pain management options preferred: [] cut cord/dad catch: [] : [] PP control planned: [] discussed possible routes of delivery and associated risks: [] special requests: [] Plans Covid status: [] Flu vaccine: [] Tdap vaccine: declines Rhogam: [] LARC form signed: [] Problem list reviewed and updated with the most current plan of care details and appropriate orders placed. Relevant counseling for the gestational age provided. Continue routine care and follow up unless otherwise noted in visit notes/problem list details OB Flowsheet Initial Weight: Not Recorded Date -?-?-?-?-?-?-?-?-?-?-?-?- EGA Weight BP Urine Prot -?-?-?-?-?-?-?-?-?-?-?-?- Glucose FHR FuHt Pres Dilation -?-?-?-?-?-?-?-?-?-?-?-?- Effaced St Visit Note 01/14/22 -?-?-?-?-?-?-?-?-?-?-?-?- 10w 5d 222 lb 122/80 -?-?-?-?-?-?-?-?-?-?-?-?- -?-?-?-?-?-?-?-?-?-?--?-?- JV- CRL consiste nt with LMP. Pt c/o moderate sciatic nerve pain and requests referral to PT. Declines NIPT/carrier testing. early gct ordered. 01/25/22 -?-?-?-?-?-?--?-?-?-?-?-?- 12w 2d 124/78 Negative -?-?-?-?-?-?-?-?-?-?-?-?- Negative -?-?-?-?-?-?-?-?-?-?-?-?- BP check only an d WNL 02/08/22 -?-?-?-?-?-?-?-?-?-?-?-?- 14w 2d 226 lb 122/80 132/84 Negative -?-?-?-?-?-?-?-?-?-?-?-?- Negative 160 -?-?-?-?-?-?-?-?-?-?-?-?- SM- no vb crampi ng 03/09/22 -?-?-?-?-?-?-?-?-?-?-?-?- 18w 3d 227 lb 6 oz 111/71 -?-?-?-?-?-?-?-?-?-?-?-?- 145 -?-?-?-?-?-?-?-?-?-?-?-?- JV- work note gi lawson for light duty.continue PT. hospital anatomy scan ordered. 04/14/22 -?-?-?-?-?-?-?-?-?-?-?-?- 23w 4d 233 lb 128/64 Negative -?-?-?-?-?-?-?-?--?-?-?-?- Negative 140 -?-?-?-?-?-?-?-?-?-?-?-?- JV- no lof, va g inal bleeding, or dec fm. glucola given. has round ligament pain and other concerns about vaginal burning. abdominal discomfort has resolved. 05/12/22 -?-?-?-?-?-?-?-?-?-?-?-?- 27w 4d 236 lb 2 oz 124/76 Nega tive -?-?-?-?-?-?-?-?-?-?-?-?- Negative 148 30 -?-?-?-?-?-?-?-?-?-?-?-?- JV- pt failed he r 1 hr again, will need 3 hr. has lots of questions. measuring large .will likely order growth ultrasound at 36 weeks or sooner to also assess fluid level. will decide timing of growth scan after 3 hr completed. 05/27/22 -?-?-?-?-?-?-?-?-?-?-?-?- 29w 5d 237 lb 119/70 Negative -?-?--?-?-?-?-?-?-?-?-?-?- Negative 154 32 -?-?-?-?-?-?-?-?-?-?-?-?- JV- no lof, vagi nal bleeding, or dec fm. normal 3 hr. plan for 36 week growth scan. 06/11/22 -?-?-?-?-?-?-?-?-?-?-?-?- 31w 6d 242 lb 6 oz 127/78 Nega tive -?-?-?-?-?-?-?-?-?-?-?-?- Negative 147 33 -?-?-?-?-?-?-?-?-?-?-?-?- JV- no lof, vagi nal bleeding, or dec fm. having shreya roth 06/25/22 -?-?-?-?-?-?-?-?-?-?-?-?- 33w 6d 242 lb 8 oz 119/78 -?-?-?-?-?-?-?-?-?-?-?-?- 160 37 -?-?-?-?-?-?-?-?-?-?-?-?- JV- no lof, vagi nal bleeding, or dec fm. needs weekly nsts for bmi 40 and growth us at 36 weeks suspect LGA 06/30/22 -?-?-?-?-?-?-?-?--?-?-?-?- 34w 4d 240 lb 8 oz 115/74 Nega tive -?-?-?-?-?-?-?-?-?-?-?-?- Negative 150 38 Cephalic -?-?-?-?-?-?-?-?-?-?-?-?- JV- NST reactive today. no complaints. 07/07/22 -?-?-?-?-?-?-?-?-?-?-?-?- 35w 4d 242 lb 8 oz 123/79 Nega tive -?-?-?-?-?-?-?-?-?-?-?-?- Negative 156 39 Cephalic -?-?-?-?-?-?-?-?-?-?-?-?- JV- NST reactive . has growth scan next week. will discuss IOL at 39 weeks pending results of ultrasound. 07/12/22 -?-?-?-?-?-?-?-?-?-?-?-?- 36w 2d Negative -?-?-?-?-?-?-?-?-?-?-?-?- Negative 150 Cephalic -?-?-?-?-?-?-?-?-?-?-?-?- LC- reactive NST . no vb/lof/vb. good fm. having increased sciatic pain. stretches reviewed, epsom salt. LC- reactive NST. no vb/lof/ vb. good fm. having increased sciatic pain. stretches reviewed, epsom salt. getting growth scan today 07/22/22 -?-?-?-?-?-?-?-?-?-?-?-?- 37w 5d 250 lb 8 oz 120/75 Nega tive -?-?-?-?-?-?-?-?-?-?-?-?- Negative 150 42 Cephalic 4 -?-?-?-?-?-?-?-?-?-?-?-?- 70 -2 JV- nst re active. estimated weight on ultrasound at 36 weeks is 7.8 lbs. plan for 39 week IOL (08/03/22) consent signed today. NST FHR Rate Baby A Baseline: 150 Variability:: Moderate Accelerations:: 15 x 15 Decelerations:: None NST Reactive:: Yes FHR Category:: Category I Uterine Activity:: irreg Assessment & Plan (1) : QUALIFIERS: Weeks of gestation: 37 weeks Qualified Code(s): Z3A.37 - 37 weeks gestation of COMMENT: Anatomy US NL. discussed NIPT & Carrier testing patient prefers Doc only (2) Supervision of normal , antepartum: COMMENT: PRR , PAWAN 08/07/21, girl JONELLE Stanley & Kenneth (3) Positive GBS test: COMMENT: PCN in labor (4) Obesity affecting : COMMENT: 1 TM GCT, encourage healthy weight gain plan for 36 week growth scan NSTs 34 weeks for bmi 40 growth scan 36 weeks, 07/13 growth US nl EFW 3378gms +/- 507gms 91st % (5) Abnormal glucose level: COMMENT: failed 1 hr GCT, 3 hr GTT ordered.,05/26 Nl 3 hr GTT. (6) Abnormal glucose affecting : COMMENT: Passed 3hr GTT (7) Sciatic nerve pain: COMMENT: tylenol, PT consult PLAN: Plan Patient presents for triage evaluation secondary to at 38+2 with decreased FM. +movement once in labor and delivery. FHT: Moderate variability reactive no decelerations category I tracing Amanda: irreg Contractions Assessment and plan: Reactive NST, reassuring maternal and status patient discharged to home to follow-up. See problem list details for additional plan information. Charges/Coding Procedures Urinary/Genital 52xxx-59xxx: 74456-26 non-stress test Interp
--- NOTE | 2022-07-26 23:48 | OB.TRI.NOTE ---
HPI - General HPI Narrative PIERCE DUBON, is a 32 F who presents with decreased FM at at 38+2. Maternal Data Information PAWAN Calculator Estimated Delivery Date Method Current WG Current Estimate 08/07/22 LMP (Certain) 38w 2d Other Estimates 08/03/22 Ultrasound #1 38w 6d 08/11/22 Ultrasound #2 37w 5d [facility] Medical History Elevated blood pressure reading without diagnosis of hypertension HPV (human papilloma virus) infection Irregular menses Lab test negative for COVID-19 virus Migraine Vitamin D deficiency Home Medications multivitamin 1 tab PO DAILY prenancy 10/23/21 [History Last Taken 07/26/22 15:00] B.coagulan,subtilis 1 bill. cell-inulin 1 gram-vit C 15 mg chew tablet (Culturelle Probiotic-Prebiotic) 1 tab PO DAILY gut health 07/26/22 [History Last Taken Unknown] lactobacillus combination no.9 4 billion cell capsule (Adult 50 Plus Probiotic) 4,000 mmu cells PO DAILY gut health 07/26/22 [History Last Taken Unknown] Allergy/AdvReac Type Severity Reaction Status Date / Time No Known Allergies Allergy Verified 07/22/22 13:07 Family History Father Diabetes Grandmother Diabetes Uncle Diabetes Surgical History Ganglion cyst Social History adopted: No household members: spouse, family and children number of children: 2 current occupational status: employed current occupation: [employer] Dietary current occupational exposures/hazards: No pets and animals: No history of recent travel: Yes ([place], [place]) out of state: Yes out of country: No sexually active: Yes Smoking Status: Never smoker alcohol intake: former details: social substance use type: does not use caffeine: Yes Type: coffee Number of servings: 1 what type of physical activity do you participate in: none seatbelt use: always do you feel safe at home: Yes additional social history: Dietary at [employer] History 3 Elective abortions Hx Para 2 Spontaneous abortions Hx # Term Pregnancies Ectopic pregnancies Hx # Pregnancies Multiple births # of living children 2 Past Pregnancies Del. Date Name GA/Weeks Outcome Route Bth Weight Gen Labor Lgth Anesthesia Del Locatn Provider FOB Unknown 2009 Lizeth live - full term Unknown 2014 Kenneth Bhandari live - full term Visit Details Expected Delivery Route/Plan Labor Preferences- CB/BF classes: [] labor support person: [] labor intervention preferences: [] pain management options preferred: [] cut cord/dad catch: [] : [] PP control planned: [] discussed possible routes of delivery and associated risks: [] special requests: [] Plans Covid status: [] Flu vaccine: [] Tdap vaccine: declines Rhogam: [] LARC form signed: [] Problem list reviewed and updated with the most current plan of care details and appropriate orders placed. Relevant counseling for the gestational age provided. Continue routine care and follow up unless otherwise noted in visit notes/problem list details OB Flowsheet Initial Weight: Not Recorded Date <del>?</del> EGA Weight BP Urine Prot <del>?</del> Glucose FHR FuHt Pres Dilation <del>?</del> Effaced St Visit Note 01/14/22 <del>?</del> 10w 5d 222 lb 122/80 <del>?</del> <del>?</del> JV- CRL consistent with LMP. Pt c/o moderate sciatic nerve pain and requests referral to PT. Declines NIPT/carrier testing. early gct ordered. 01/25/22 <del>?</del> 12w 2d 124/78 Negative <del>?</del> Negative <del>?</del> BP check only and WNL 02/08/22 <del>?</del> 14w 2d 226 lb 122/80 132/84 Negative <del>?</del> Negative 160 <del>?</del> SM- no vb cramping 03/09/22 <del>?</del> 18w 3d 227 lb 6 oz 111/71 <del>?</del> 145 <del>?</del> JV- work note given for light duty.continue PT. hospital anatomy scan ordered. 04/14/22 <del>?</del> 23w 4d 233 lb 128/64 Negative <del>?</del> Negative 140 <del>?</del> JV- no lof, va ginal bleeding, or dec fm. glucola given. has round ligament pain and other concerns about vaginal burning. abdominal discomfort has resolved. 05/12/22 <del>?</del> 27w 4d 236 lb 2 oz 124/76 Negative <del>?</del> Negative 148 30 <del>?</del> JV- pt failed her 1 hr again, will need 3 hr. has lots of questions. measuring large .will likely order growth ultrasound at 36 weeks or sooner to also assess fluid level. will decide timing of growth scan after 3 hr completed. 05/27/22 <del>?</del> 29w 5d 237 lb 119/70 Negative <del>?</del> Negative 154 32 <del>?</del> JV- no lof, vaginal bleeding, or dec fm. normal 3 hr. plan for 36 week growth scan. 06/11/22 <del>?</del> 31w 6d 242 lb 6 oz 127/78 Negative <del>?</del> Negative 147 33 <del>?</del> JV- no lof, vaginal bleeding, or dec fm. having shreya roth 06/25/22 <del>?</del> 33w 6d 242 lb 8 oz 119/78 <del>?</del> 160 37 <del>?</del> JV- no lof, vaginal bleeding, or dec fm. needs weekly nsts for bmi 40 and growth us at 36 weeks suspect LGA 06/30/22 <del>?</del> 34w 4d 240 lb 8 oz 115/74 Negative <del>?</del> Negative 150 38 Cephalic <del>?</del> JV- NST reactive today. no complaints. 07/07/22 <del>?</del> 35w 4d 242 lb 8 oz 123/79 Negative <del>?</del> Negative 156 39 Cephalic <del>?</del> JV- NST reactive. has growth scan next week. will discuss IOL at 39 weeks pending results of ultrasound. 07/12/22 <del>?</del> 36w 2d Negative <del>?</del> Negative 150 Cephalic <del>?</del> LC- reactive NST. no vb/lof/vb. good fm. having increased sciatic pain. stretches reviewed, epsom salt. LC- reactive NST. no vb/lof/vb. good fm. having increased sciatic pain. stretches reviewed, epsom salt. getting growth scan today 07/22/22 <del>?</del> 37w 5d 250 lb 8 oz 120/75 Negative <del>?</del> Negative 150 42 Cephalic 4 <del>?</del> 70 -2 JV- nst reactive. estimated weight on ultrasound at 36 weeks is 7.8 lbs. plan for 39 week IOL (08/03/22) consent signed today. NST FHR Rate Baby A Baseline: 150 Variability:: Moderate Accelerations:: 15 x 15 Decelerations:: None NST Reactive:: Yes FHR Category:: Category I Uterine Activity:: irreg Assessment & Plan (1) : QUALIFIERS: Weeks of gestation: 37 weeks Qualified Code(s): Z3A.37 - 37 weeks gestation of COMMENT: Anatomy US NL. discussed NIPT & Carrier testing patient prefers Doc only (2) Supervision of normal , antepartum: COMMENT: PRR , PAWAN 08/07/21, girl PC Lizeth & Kenneth (3) Positive GBS test: COMMENT: PCN in labor (4) Obesity affecting : COMMENT: 1 TM GCT, encourage healthy weight gain plan for 36 week growth scan NSTs 34 weeks for bmi 40 growth scan 36 weeks, 07/13 growth US nl EFW 3378gms +/- 507gms 91st % (5) Abnormal glucose level: COMMENT: failed 1 hr GCT, 3 hr GTT ordered.,12/7 Nl 3 hr GTT. (6) Abnormal glucose affecting : COMMENT: Passed 3hr GTT (7) Sciatic nerve pain: COMMENT: tylenol, PT consult PLAN: Plan Patient presents for triage evaluation secondary to at 38+2 with decreased FM. +movement once in labor and delivery. FHT: Moderate variability reactive no decelerations category I tracing [place]: irreg Contractions Assessment and plan: Reactive NST, reassuring maternal and status patient discharged to home to follow-up. See problem list details for additional plan information. Charges/Coding Procedures Urinary/Genital 52xxx-59xxx: 18772-07 non-stress test Interp
== END 2022-07-26 20:29 | disposition home or self-care (01) ==
LOC: WPOUT 18:38 → WP 18:40
PROVIDERS: PCP Internal Medicine; Referring Provider Registered Nurse; Visit Provider Registered Nurse
DX: O36.8130 Decreased fetal movements, third trimester, not applicable or unspecified (principal); O99.820 Streptococcus B carrier state complicating pregnancy; O99.213 Obesity complicating pregnancy, third trimester; O99.810 Abnormal glucose complicating pregnancy; E66.9 Obesity, unspecified; Z3A.38 38 weeks gestation of pregnancy
CPT/HCPCS: 59025; 59050; 99221; G0378

== ENCOUNTER 2022-07-28 12:43 | Outpatient (CLI) | payer MEDICAID, SELFPAY ==
[2022-07-28] VITALS (9 sets, daily range): BP systolic 117–134; BP diastolic 61–74; PULSE 100–123; TEMP 37; O2SAT 99; BMI 41.1
[2022-07-28 13:17] LABS: Hematocrit 34.5 % (37-47); Hemoglobin 11.5 g/dL (12.0-15.0); Mean Corp Hgb Conc 33.3 g/dL (32-36); Mean Corpuscular Hgb 30.6 pg (27.0-32.0); Mean Corpuscular Volume 91.8 fL (81-99); Mean Platelet Vol. 9.9 fl (6.2-12.0); Platelet Count 230 K/mm3 (150-450); RBC Distribution Width CV 15.2 % (11.6-14.6); RBC Distribution Width SD 50.4 fl (35.1-43.9); Red Blood Count 3.76 M/mm3 (4.2-5.4); White Blood Count 5.6 K/mm3 (4.4-11.0)
[2022-07-28 13:29] LABS: AST(SGOT) 19 U/L (15-37); Alanine Aminotransfer ALT/SGPT 22 U/L (13-56); Creatinine, Serum 0.69 mg/dL (0.55-1.02); EST Glomerular Filtration Rate 105 mL/min (>60); Est Glom Filt Rate - Afr Amer 127 mL/min (>60); Estimated Creatinine Clearance 105.33 ml/min; Protein, Urine (Random) 26.7 mg/dL (<11.9); Protein:Creat Ratio 131 mg/g CRE (0-200)
--- NOTE | 2022-08-01 11:13 | OB.TRI.HP_ITS ---
HPI - General HPI Narrative PIERCE DUBON, is a 32 F who presents at 38+2 for r/o labor Maternal Data Information PAWAN Calculator Estimated Delivery Date Method Current WG Current Estimate 08/07/22 LMP (Certain) 39w 1d Other Estimates 08/03/22 Ultrasound #1 39w 5d 08/11/22 Ultrasound #2 38w 4d [facility] Medical History Elevated blood pressure reading without diagnosis of hypertension HPV (human papilloma virus) infection Irregular menses Lab test negative for COVID-19 virus Migraine Vitamin D deficiency Home Medications B.coagulan,subtilis 1 bill. cell-inulin 1 gram-vit C 15 mg chew tablet (Culturelle Probiotic-Prebiotic) 1 tab PO DAILY gut health 07/26/22 [History Last Taken 2 Days Ago ~07/26/22] lactobacillus combination no.9 4 billion cell capsule (Adult 50 Plus Probiotic) 4,000 mmu cells PO DAILY gut health 07/26/22 [History Last Taken 2 Days Ago ~07/26/22] [id number] 1 mg tablet 1 tab PO QHS 07/28/22 [History Last Taken 1 Day Ago ~07/27/22] Allergy/AdvReac Type Severity Reaction Status Date / Time No Known Allergies Allergy Verified 08/01/22 10:56 Family History Father Diabetes Grandmother Diabetes Uncle Diabetes Surgical History Ganglion cyst Social History adopted: No household members: spouse, family and children number of children: 2 current occupational status: employed current occupation: [employer] Dietary current occupational exposures/hazards: No pets and animals: No history of recent travel: Yes ([place], [place]) out of state: Yes out of country: No sexually active: Yes Smoking Status: Never smoker alcohol intake: former details: social substance use type: does not use caffeine: Yes Type: coffee Number of servings: 1 what type of physical activity do you participate in: none seatbelt use: always do you feel safe at home: Yes additional social history: Dietary at [employer] History 3 Elective abortions Hx Para 2 Spontaneous abortions Hx # Term Pregnancies Ectopic pregnancies Hx # Pregnancies Multiple births # of living children 2 Past Pregnancies Del. Date Name GA/Weeks Outcome Route Bth Weight Gen Labor Lgth Anesthesia Del Locatn Provider FOB Unknown 2009 Lizeth live - full term Unknown 2014 Kenneth Bhandari live - full term Visit Details Expected Delivery Route/Plan Labor Preferences- CB/BF classes: [] labor support person: [] labor intervention preferences: [] pain management options preferred: [] cut cord/dad catch: [] : [] PP control planned: [] discussed possible routes of delivery and associated risks: [] special requests: [] Plans Covid status: [] Flu vaccine: [] Tdap vaccine: declines Rhogam: [] LARC form signed: [] Problem list reviewed and updated with the most current plan of care details and appropriate orders placed. Relevant counseling for the gestational age provided. Continue routine care and follow up unless otherwise noted in visit notes/problem list details OB Flowsheet Initial Weight: Not Recorded Date -?-?-?-?-?-?-?-?-?-?-?-?- EGA Weight BP Urine Prot -?-?-?-?-?-?-?-?-?-?-?-?- Glucose FHR FuHt Pres Dilation -?-?-?-?-?-?-?-?-?-?-?-?- Effaced St Visit Note 01/14/22 -?-?-?-?-?-?-?-?-?-?-?-?- 10w 5d 222 lb 122/80 -?-?-?-?-?-?-?-?-?-?-?-?- -?-?-?-?-?-?-?-?-?-?-?-?- JV- CRL consiste nt with LMP. Pt c/o moderate sciatic nerve pain and requests referral to PT. Declines NIPT/carrier testing. early gct ordered. 01/25/22 -?-?-?-?-?-?-?-?-?-?-?-?- 12w 2d 124/78 Negative -?-?-?-?-?-?-?-?-?-?-?-?- Negative -?-?-?-?-?-?-?-?-?-?-?-?- BP check only an d WNL 02/08/22 -?-?-?-?-?-?-?-?-?-?-?-?- 14w 2d 226 lb 122/80 132/84 Negative -?-?-?-?-?-?-?-?-?-?-?-?- Negative 160 -?-?-?-?-?-?-?-?-?-?-?-?- SM- no vb crampi ng 03/09/22 -?-?-?-?-?-?-?-?-?-?-?-?- 18w 3d 227 lb 6 oz 111/71 -?-?-?-?-?-?-?-?-?-?-?-?- 145 -?-?-?-?-?-?-?-?-?-?-?-?- JV- work note gi lawson for light duty.continue PT. [facility] anatomy scan ordered. 04/14/22 -?-?-?-?-?-?-?-?-?-?-?-?- 23w 4d 233 lb 128/64 Negative -?-?-?-?-?-?-?-?-?-?-?-?- Negative 140 -?-?-?-?-?-?-?-?-?-?-?-?- JV- no lof, va g inal bleeding, or dec fm. glucola given. has round ligament pain and other concerns about vaginal burning. abdominal discomfort has resolved. 05/12/22 -?-?-?-?-?-?-?-?-?-?-?-?- 27w 4d 236 lb 2 oz 124/76 Nega tive -?-?-?-?-?-?-?-?-?-?-?-?- Negative 148 30 -?-?-?-?-?-?-?-?-?-?-?-?- JV- pt failed he r 1 hr again, will need 3 hr. has lots of questions. measuring large .will likely order growth ultrasound at 36 weeks or sooner to also assess fluid level. will decide timing of growth scan after 3 hr completed. 05/27/22 -?-?-?-?-?-?-?-?-?-?-?-?- 29w 5d 237 lb 119/70 Negative -?-?-?-?-?-?-?-?-?-?-?-?- Negative 154 32 -?-?-?-?-?-?-?-?-?-?-?-?- JV- no lof, vagi nal bleeding, or dec fm. normal 3 hr. plan for 36 week growth scan. 06/11/22 -?-?-?-?-?-?-?-?-?-?-?-?- 31w 6d 242 lb 6 oz 127/78 Nega tive -?-?-?-?-?-?-?-?-?-?-?-?- Negative 147 33 -?-?-?-?-?-?-?-?-?-?-?-?- JV- no lof, vagi nal bleeding, or dec fm. having shreya roth 06/25/22 -?-?-?-?-?-?-?-?-?-?-?-?- 33w 6d 242 lb 8 oz 119/78 -?-?-?-?-?-?-?-?-?-?-?-?- 160 37 -?-?-?-?-?-?-?-?-?-?-?-?- JV- no lof, vagi nal bleeding, or dec fm. needs weekly nsts for bmi 40 and growth us at 36 weeks suspect LGA 06/30/22 -?-?-?-?-?-?-?-?-?-?-?-?- 34w 4d 240 lb 8 oz 115/74 Nega tive -?-?-?-?-?-?-?-?-?-?-?-?- Negative 150 38 Cephalic -?-?-?-?-?-?-?-?-?-?-?-?- JV- NST reactive today. no complaints. 07/07/22 -?-?-?-?-?-?-?-?-?-?-?-?- 35w 4d 242 lb 8 oz 123/79 Nega tive -?-?-?-?-?-?-?-?-?-?-?-?- Negative 156 39 Cephalic -?-?-?-?-?-?-?-?-?-?-?-?- JV- NST reactive . has growth scan next week. will discuss IOL at 39 weeks pending results of ultrasound. 07/12/22 -?-?-?-?-?-?-?-?-?-?-?-?- 36w 2d Negative -?-?-?-?-?-?-?-?-?-?-?-?- Negative 150 Cephalic -?-?-?-?-?-?-?-?-?-?-?-?- LC- reactive NST . no vb/lof/vb. good fm. having increased sciatic pain. stretches reviewed, epsom salt. LC- reactive NST. no vb/lof/ vb. good fm. having increased sciatic pain. stretches reviewed, epsom salt. getting growth scan today 07/22/22 -?-?-?-?-?-?-?-?-?-?-?-?- 37w 5d 250 lb 8 oz 120/75 Nega tive -?-?-?-?-?-?-?-?-?-?-?-?- Negative 150 42 Cephalic 4 -?-?-?-?-?-?-?-?-?-?-?-?- 70 -2 JV- nst re active. estimated weight on ultrasound at 36 weeks is 7.8 lbs. plan for 39 week IOL (08/03/22) consent signed today. 07/28/22 -?-?-?-?-?-?-?-?-?-?-?-?- 38w 4d 249 lb 118/78 Negative -?-?-?-?-?-?-?-?-?-?-?-?- Negative 130 43 Cephalic 4 -?-?-?-?-?-?-?-?-?-?-?-?- 80 -2 JV- nst re active. Pt has dependent edema on her panus and has a hard time walking. urine dip shows trace protein and she complains of a headache and overall not feeling well. FH is larger than dates also. sending to L&D to r/o labor and pih NST FHR Rate Baby A Baseline: 140 Variability:: Moderate Accelerations:: 15 x 15 Decelerations:: None NST Reactive:: Yes FHR Category:: Category I Uterine Activity:: irregular contraction pattern, that continued to space out Assessment & Plan (1) Supervision of normal , antepartum: COMMENT: PRR , PAWAN 08/07/21, girl PC Lizeth & Kenneth (2) : QUALIFIERS: Weeks of gestation: 38 weeks Qualified Code(s): Z3A.38 - 38 weeks gestation of COMMENT: Anatomy US NL. discussed NIPT & Carrier testing patient prefers Doc only PLAN: Plan Patient presents for triage evaluation secondary to contractions FHT: Moderate variability reactive no decelerations category I tracing [place]: irreg Contractions Assessment and plan: Reactive NST, reassuring maternal and status patient discharged to home to follow-up in the office. See problem list details for additional plan information. Charges/Coding Procedures Urinary/Genital 52xxx-59xxx: 16352-70 non-stress test Interp
--- NOTE | 2022-08-01 11:13 | OB.TRI.NOTE ---
HPI - General HPI Narrative PIERCE DUBON, is a 32 F who presents at 38+2 for r/o labor Maternal Data Information PAWAN Calculator Estimated Delivery Date Method Current WG Current Estimate 08/07/22 LMP (Certain) 39w 1d Other Estimates 08/03/22 Ultrasound #1 39w 5d 08/11/22 Ultrasound #2 38w 4d PFSH PFS Medical History Elevated blood pressure reading without diagnosis of hypertension HPV (human papilloma virus) infection Irregular menses Lab test negative for COVID-19 virus Migraine Vitamin D deficiency Home Medications B.coagulan,subtilis 1 bill. cell-inulin 1 gram-vit C 15 mg chew tablet (Culturelle Probiotic-Prebiotic) 1 tab PO DAILY gut health 07/26/22 [History Last Taken 2 Days Ago ~07/26/22] lactobacillus combination no.9 4 billion cell capsule (Adult 50 Plus Probiotic) 4,000 mmu cells PO DAILY gut health 07/26/22 [History Last Taken 2 Days Ago ~07/26/22] klecxgnm-[id number]-FA 1 mg tablet 1 tab PO QHS 07/28/22 [History Last Taken 1 Day Ago ~07/27/22] Allergy/AdvReac Type Severity Reaction Status Date / Time No Known Allergies Allergy Verified 08/01/22 10:56 Family History Father Diabetes Grandmother Diabetes Uncle Diabetes Surgical History Ganglion cyst Social History adopted: No household members: spouse, family and children number of children: 2 current occupational status: employed current occupation: [employer] Dietary current occupational exposures/hazards: No pets and animals: No history of recent travel: Yes ([place], [place]) out of state: Yes out of country: No sexually active: Yes Smoking Status: Never smoker alcohol intake: former details: social substance use type: does not use caffeine: Yes Type: coffee Number of servings: 1 what type of physical activity do you participate in: none seatbelt use: always do you feel safe at home: Yes additional social history: Dietary at [employer] History 3 Elective abortions Hx Para 2 Spontaneous abortions Hx # Term Pregnancies Ectopic pregnancies Hx # Pregnancies Multiple births # of living children 2 Past Pregnancies Del. Date Name GA/Weeks Outcome Route Bth Weight Gen Labor Lgth Anesthesia Del Locatn Provider FOB Unknown 2009 Lizeth live - full term Unknown 2014 Kenneth Bhandari live - full term Visit Details Expected Delivery Route/Plan Labor Preferences- CB/BF classes: [] labor support person: [] labor intervention preferences: [] pain management options preferred: [] cut cord/dad catch: [] : [] PP control planned: [] discussed possible routes of delivery and associated risks: [] special requests: [] Plans Covid status: [] Flu vaccine: [] Tdap vaccine: declines Rhogam: [] LARC form signed: [] Problem list reviewed and updated with the most current plan of care details and appropriate orders placed. Relevant counseling for the gestational age provided. Continue routine care and follow up unless otherwise noted in visit notes/problem list details OB Flowsheet Initial Weight: Not Recorded Date <del>?</del> EGA Weight BP Urine Prot <del>?</del> Glucose FHR FuHt Pres Dilation <del>?</del> Effaced St Visit Note 01/14/22 <del>?</del> 10w 5d 222 lb 122/80 <del>?</del> <del>?</del> JV- CRL consistent with LMP. Pt c/o moderate sciatic nerve pain and requests referral to PT. Declines NIPT/carrier testing. early gct ordered. 01/25/22 <del>?</del> 12w 2d 124/78 Negative <del>?</del> Negative <del>?</del> BP check only and WNL 02/08/22 <del>?</del> 14w 2d 226 lb 122/80 132/84 Negative <del>?</del> Negative 160 <del>?</del> SM- no vb cramping 03/09/22 <del>?</del> 18w 3d 227 lb 6 oz 111/71 <del>?</del> 145 <del>?</del> JV- work note given for light duty.continue PT. hospital anatomy scan ordered. 04/14/22 <del>?</del> 23w 4d 233 lb 128/64 Negative <del>?</del> Negative 140 <del>?</del> JV- no lof, va ginal bleeding, or dec fm. glucola given. has round ligament pain and other concerns about vaginal burning. abdominal discomfort has resolved. 05/12/22 <del>?</del> 27w 4d 236 lb 2 oz 124/76 Negative <del>?</del> Negative 148 30 <del>?</del> JV- pt failed her 1 hr again, will need 3 hr. has lots of questions. measuring large .will likely order growth ultrasound at 36 weeks or sooner to also assess fluid level. will decide timing of growth scan after 3 hr completed. 05/27/22 <del>?</del> 29w 5d 237 lb 119/70 Negative <del>?</del> Negative 154 32 <del>?</del> JV- no lof, vaginal bleeding, or dec fm. normal 3 hr. plan for 36 week growth scan. 06/11/22 <del>?</del> 31w 6d 242 lb 6 oz 127/78 Negative <del>?</del> Negative 147 33 <del>?</del> JV- no lof, vaginal bleeding, or dec fm. having shreya roth 06/25/22 <del>?</del> 33w 6d 242 lb 8 oz 119/78 <del>?</del> 160 37 <del>?</del> JV- no lof, vaginal bleeding, or dec fm. needs weekly nsts for bmi 40 and growth us at 36 weeks suspect LGA 06/30/22 <del>?</del> 34w 4d 240 lb 8 oz 115/74 Negative <del>?</del> Negative 150 38 Cephalic <del>?</del> JV- NST reactive today. no complaints. 07/07/22 <del>?</del> 35w 4d 242 lb 8 oz 123/79 Negative <del>?</del> Negative 156 39 Cephalic <del>?</del> JV- NST reactive. has growth scan next week. will discuss IOL at 39 weeks pending results of ultrasound. 07/12/22 <del>?</del> 36w 2d Negative <del>?</del> Negative 150 Cephalic <del>?</del> LC- reactive NST. no vb/lof/vb. good fm. having increased sciatic pain. stretches reviewed, epsom salt. LC- reactive NST. no vb/lof/vb. good fm. having increased sciatic pain. stretches reviewed, epsom salt. getting growth scan today 07/22/22 <del>?</del> 37w 5d 250 lb 8 oz 120/75 Negative <del>?</del> Negative 150 42 Cephalic 4 <del>?</del> 70 -2 JV- nst reactive. estimated weight on ultrasound at 36 weeks is 7.8 lbs. plan for 39 week IOL (08/03/22) consent signed today. 07/28/22 <del>?</del> 38w 4d 249 lb 118/78 Negative <del>?</del> Negative 130 43 Cephalic 4 <del>?</del> 80 -2 JV- nst reactive. Pt has dependent edema on her panus and has a hard time walking. urine dip shows trace protein and she complains of a headache and overall not feeling well. FH is larger than dates also. sending to L&D to r/o labor and pih NST FHR Rate Baby A Baseline: 140 Variability:: Moderate Accelerations:: 15 x 15 Decelerations:: None NST Reactive:: Yes FHR Category:: Category I Uterine Activity:: irregular contraction pattern, that continued to space out Assessment & Plan (1) Supervision of normal , antepartum: COMMENT: PRR , PAWAN 08/07/21, girl PC Lizeth & Kenneth (2) : QUALIFIERS: Weeks of gestation: 38 weeks Qualified Code(s): Z3A.38 - 38 weeks gestation of COMMENT: Anatomy US NL. discussed NIPT & Carrier testing patient prefers Doc only PLAN: Plan Patient presents for triage evaluation secondary to contractions FHT: Moderate variability reactive no decelerations category I tracing [place]: irreg Contractions Assessment and plan: Reactive NST, reassuring maternal and status patient discharged to home to follow-up in the office. See problem list details for additional plan information. Charges/Coding Procedures Urinary/Genital [id number]: [id number] non-stress test Interp
== END 2022-07-28 15:43 | disposition home or self-care (01) ==
LOC: WPOUT 12:47 → WP 12:50
PROVIDERS: PCP Internal Medicine; Visit Provider Registered Nurse
DX: O47.1 False labor at or after 37 completed weeks of gestation (principal); Z3A.38 38 weeks gestation of pregnancy
CPT/HCPCS: 36415; 59025; 59050; 82565; 82570; 84156; 84450; 84460; 84550; 85027; 99221; G0378

== ENCOUNTER 2022-08-01 10:15 | Inpatient (IN) | payer MEDICAID, SELFPAY ==
[2022-08-01] VITALS (34 sets, daily range): BP systolic 122–151; BP diastolic 60–91; PULSE 80–109; RESP 16; TEMP 36.2–37.6; O2SAT 90–100; BMI 41.6
[2022-08-01] MEDS: Lactated Ringers 1,000 ML 50 ML IV (10:45)
[2022-08-01 10:59] LABS: Absolute Lymphocyte Count 1.43 X10^3/uL (0.83-4.51); Absolute Neutrophil Count 4.5 X10^3/uL (2.0-7.7); Basophil# 0.01 X10^3/uL; Basophil% 0.2 % (0-1); Eosinophil# 0.01 X10^3/uL; Eosinophils% 0.2 % (0-5); Hematocrit 37.3 % (37-47); Hemoglobin 12.2 g/dL (12.0-15.0); Lymphocyte # 1.43 X10^3/ul (0.83-4.51); Lymphocyte % 21.5 % (19-41); Mean Corp Hgb Conc 32.7 g/dL (32-36); Mean Corpuscular Hgb 30.3 pg (27.0-32.0); Mean Corpuscular Volume 92.6 fL (81-99); Mean Platelet Vol. 10.1 fl (6.2-12.0); Monocyte# 0.59 X10^3/uL; Monocyte% 8.9 % (0-10); NRBC Flagged by Analyzer 0 % (0-5); Neutrophil # 4.53 X10^3/uL (2.7-7.7); Platelet Count 240 K/mm3 (150-450); RBC Distribution Width CV 15.2 % (11.6-14.6); RBC Distribution Width SD 51.4 fl (35.1-43.9); Red Blood Count 4.03 M/mm3 (4.2-5.4); White Blood Count 6.7 K/mm3 (4.4-11.0)
[2022-08-01] MEDS: LACTATED RINGERS 500 ML 999 ML IV (11:56)
[2022-08-01] MEDS: fentaNYL-bupivacaine (epidural) 100 ML BAG EPIDURAL (12:40)
[2022-08-01] MEDS: Lactated Ringers 1,000 ML 200 ML IV (14:07)
[2022-08-01] MEDS: Oxytocin 10 UNITS/ML Vial IM (14:18)
[2022-08-01] MEDS: Oxytocin 15 Units/NS 250ml 15 UNITS/250 ML IV.SOLN 83 UNITS IV (14:19)
--- NOTE | 2022-08-01 14:53 | HP.PCM.OB_ITS ---
HPI - General General Date of Admission: 08/01/22 HPI Narrative PIERCE DUBON, is a 32 y/o @ 39 weeks 1 gestation who presents to L&D 9 cm dilated with bulging bag. She has a history of 2 prior vaginal deliveries. This baby is expected to be LGA. Her gestational dm tests were negative x 2 during the . She has been receiving non stress tests due to obesity. Maternal Data Information PAWAN Calculator Estimated Delivery Date Method Current WG Current Estimate 08/07/22 LMP (Certain) 39w 1d Other Estimates 08/03/22 Ultrasound #1 39w 5d 08/11/22 Ultrasound #2 38w 4d PFSH PFSH Medical History (Updated 08/01/22 @ 13:08 by Quique Stewart) Elevated blood pressure reading without diagnosis of hypertension HPV (human papilloma virus) infection Infertility Irregular menses Lab test negative for COVID-19 virus Migraine Vitamin D deficiency Home Medications B.coagulan,subtilis 1 bill. cell-inulin 1 gram-vit C 15 mg chew tablet (Culturelle Probiotic-Prebiotic) 1 tab PO DAILY gut health 07/26/22 [History Last Taken 2 Days Ago ~07/26/22] lactobacillus combination no.9 4 billion cell capsule (Adult 50 Plus Probiotic) 4,000 mmu cells PO DAILY gut health 07/26/22 [History Last Taken 2 Days Ago ~07/26/22] phciyjje-ymo-Tg-FA 1 mg tablet 1 tab PO QHS 07/28/22 [History Last Taken 1 Day Ago ~07/27/22] Allergy/AdvReac Type Severity Reaction Status Date / Time No Known Allergies Allergy Verified 08/01/22 10:56 Family History Father Diabetes Grandmother Diabetes Uncle Diabetes Surgical History Ganglion cyst Social History adopted: No household members: spouse, family and children number of children: 2 current occupational status: employed current occupation: [employer] Dietary current occupational exposures/hazards: No pets and animals: No history of recent travel: Yes ([place], [place]) out of state: Yes out of country: No sexually active: Yes Smoking Status: Never smoker alcohol intake: former details: social substance use type: does not use caffeine: Yes Type: coffee Number of servings: 1 what type of physical activity do you participate in: none seatbelt use: always do you feel safe at home: Yes additional social history: Dietary at [employer] History 3 Elective abortions Hx Para 2 Spontaneous abortions Hx # Term Pregnancies Ectopic pregnancies Hx # Pregnancies Multiple births # of living children 2 Past Pregnancies Del. Date Name GA/Weeks Outcome Route Bth Weight Gen Labor Lgth Anesthesia Del Locatn Provider FOB Unknown 2009 Lizeth live - full term Unknown 2014 Kenneth Bhandari live - full term Visit Details Expected Delivery Route/Plan Labor Preferences- CB/BF classes: [] labor support person: [] labor intervention preferences: [] pain management options preferred: [] cut cord/dad catch: [] : [] PP control planned: [] discussed possible routes of delivery and associated risks: [] special requests: [] Plans Covid status: [] Flu vaccine: [] Tdap vaccine: declines Rhogam: [] LARC form signed: [] Problem list reviewed and updated with the most current plan of care details and appropriate orders placed. Relevant counseling for the gestational age provided. Continue routine care and follow up unless otherwise noted in visit notes/problem list details OB Flowsheet Initial Weight: Not Recorded Date -?-?-?-?-?-?-?-?-?-?-?-?- EGA Weight BP Urine Prot -?-?-?-?-?-?-?-?-?-?-?-?- Glucose FHR FuHt Pres Dilation -?-?-?-?-?-?-?-?-?-?-?-?- Effaced St Visit Note 01/14/22 -?-?-?-?-?-?-?-?-?-?-?-?- 10w 5d 222 lb 122/80 -?-?-?-?-?-?-?-?-?-?-?-?- -?-?-?-?-?-?-?-?-?-?-?-?- JV- CRL consiste nt with LMP. Pt c/o moderate sciatic nerve pain and requests referral to PT. Declines NIPT/carrier testing. early gct ordered. 01/25/22 -?-?-?-?-?-?-?-?-?-?-?-?- 12w 2d 124/78 Negative -?-?-?-?-?-?-?-?-?-?-?-?- Negative -?-?-?-?-?-?-?-?-?-?-?-?- BP check only an d WNL 02/08/22 -?-?-?-?-?--?-?-?-?-?-?-?- 14w 2d 226 lb 122/80 132/84 Negative -?-?-?-?-?-?-?-?-?-?-?-?- Negative 160 -?-?-?-?-?-?-?-?-?-?-?-?- SM- no vb crampi ng 03/09/22 -?-?-?-?-?-?-?-?-?-?-?-?- 18w 3d 227 lb 6 oz 111/71 -?-?-?-?-?-?-?-?-?-?-?-?- 145 -?-?-?-?-?-?-?-?-?-?-?-?- JV- work note gi lawson for light duty.continue PT. hospital anatomy scan ordered. 04/14/22 -?-?-?-?-?-?-?-?-?-?-?-?- 23w 4d 233 lb 128/64 Negative -?-?-?-?-?-?-?-?-?-?-?-?- Negative 140 -?-?-?-?-?-?-?-?-?-?-?-?- JV- no lof, va g inal bleeding, or dec fm. glucola given. has round ligament pain and other concerns about vaginal burning. abdominal discomfort has resolved. 05/12/22 -?-?-?-?-?-?-?-?-?-?-?-?- 27w 4d 236 lb 2 oz 124/76 Nega tive -?-?-?-?-?-?-?-?-?-?-?-?- Negative 148 30 -?-?-?-?-?-?-?-?-?-?-?-?- JV- pt failed he r 1 hr again, will need 3 hr. has lots of questions. measuring large .will likely order growth ultrasound at 36 weeks or sooner to also assess fluid level. will decide timing of growth scan after 3 hr completed. 05/27/22 -?-?-?-?-?-?-?-?-?-?-?-?- 29w 5d 237 lb 119/70 Negative -?-?-?-?-?-?-?-?-?-?-?-?- Negative 154 32 -?-?-?-?-?-?-?-?-?-?-?-?- JV- no lof, vagi nal bleeding, or dec fm. normal 3 hr. plan for 36 week growth scan. 06/11/22 -?--?-?-?-?-?-?-?-?-?-?-?- 31w 6d 242 lb 6 oz 127/78 Nega tive -?-?-?-?-?-?-?-?-?-?-?-?- Negative 147 33 -?-?-?-?-?-?-?-?-?-?-?-?- JV- no lof, vagi nal bleeding, or dec fm. having shreya roth 06/25/22 -?-?-?-?-?-?-?-?-?-?-?-?- 33w 6d 242 lb 8 oz 119/78 -?-?-?-?-?-?-?-?-?-?-?-?- 160 37 -?-?-?-?-?-?-?-?-?-?-?-?- JV- no lof, vagi nal bleeding, or dec fm. needs weekly nsts for bmi 40 and growth us at 36 weeks suspect LGA 06/30/22 -?-?-?-?-?-?-?-?-?-?-?-?- 34w 4d 240 lb 8 oz 115/74 Nega tive -?-?-?-?-?-?-?-?-?-?-?-?- Negative 150 38 Cephalic -?-?-?-?-?-?-?-?-?-?-?-?- JV- NST reactive today. no complaints. 07/07/22 -?-?-?-?-?-?-?-?-?-?-?-?- 35w 4d 242 lb 8 oz 123/79 Nega tive -?-?-?-?-?-?-?-?-?-?-?-?- Negative 156 39 Cephalic -?-?-?-?-?-?-?-?-?-?-?-?- JV- NST reactive . has growth scan next week. will discuss IOL at 39 weeks pending results of ultrasound. 07/12/22 -?-?-?-?-?-?-?-?-?-?-?-?- 36w 2d Negative -?-?-?-?-?-?-?-?-?-?-?-?- Negative 150 Cephalic -?-?-?-?-?-?-?-?-?-?-?-?- LC- reactive NST . no vb/lof/vb. good fm. having increased sciatic pain. stretches reviewed, epsom salt. LC- reactive NST. no vb/lof/ vb. good fm. having increased sciatic pain. stretches reviewed, epsom salt. getting growth scan today 07/22/22 -?-?-?-?-?-?-?-?-?-?-?-?- 37w 5d 250 lb 8 oz 120/75 Nega tive -?-?-?-?-?-?-?-?-?-?-?-?- Negative 150 42 Cephalic 4 -?-?-?-?-?-?-?-?-?-?-?-?- 70 -2 JV- nst re active. estimated weight on ultrasound at 36 weeks is 7.8 lbs. plan for 39 week IOL (08/03/22) consent signed today. 07/28/22 -?-?-?-?-?-?-?-?-?-?-?-?- 38w 4d 249 lb 118/78 Negative -?-?-?-?-?-?-?-?-?-?-?-?- Negative 130 43 Cephalic 4 -?-?-?-?-?-?-?-?-?-?-?-?- 80 -2 JV- nst re active. Pt has dependent edema on her panus and has a hard time walking. urine dip shows trace protein and she complains of a headache and overall not feeling well. FH is larger than dates also. sending to L&D to r/o labor and pih ROS Constitutional Constitutional: Denies change in weight, fatigue, fever(s), headache(s), poor appetite or weakness Eyes Eyes: Denies blurry vision, change in vision, seeing flashes or spots in vision ENT HEENT: Denies dizziness, headache(s), loss taste/smell or sore throat Cardiovascular Cardiovascular: Denies chest pain, dizziness, dyspnea, irregular heart rhythm, leg edema, palpitations, rapid heart rate or vomiting Respiratory/Chest Respiratory/Chest: Denies chest tightness, cough, dyspnea or breast pain Gastrointestinal Gastrointestinal: Denies abdominal pain, anorexia, constipation, cramping, diarrhea, hemorrhoids, vomiting or weight changes Genitourinary Genitourinary: Denies dysuria, flank pain, genital lesions, genital pain, urinary frequency or urinary urgency Musculoskeletal Musculoskeletal: Denies back pain, difficulty walking, joint pain, limited range of motion, muscle cramps or numbness Integumentary Integumentary: Denies lesions or unusual bruising Neurologic Neurologic: Denies abnormal movements, abnormal speech, dizziness, numbness, seizure-like activity or syncope Psychiatric Psychiatric: Denies anxiety, behavioral changes, change in appetite, change in libido, cognitive impairment, confusion, depression, difficulty concentrating, hallucinations or suicidal thoughts Endocrine Endocrinology: Denies excessive sweating, polydipsia or polyuria Hematologic/Lymphatic Hematologic/Lymphatic: Denies easy bleeding, easy bruising or lymphadenopathy Allergic/Immunologic Allergic/Immunologic: Denies itchy eyes, lip swelling, seasonal rhinorrhea, rhinitis, throat swelling, tongue swelling, eczemia, wheezing or asthma Vital Signs Vital Signs Vital Signs: 08/01/22 10:41 08/01/22 10:41 08/01/22 10:41 Temperature 99.6 F H Temperature Source Temporal Pulse Rate Blood Pressure BP Systolic 139 BP Diastolic Pulse Ox 08/01/22 10:41 08/01/22 11:40 08/01/22 11:40 Temperature Temperature Source Pulse Rate 100 103 H Blood Pressure 124/60 H BP Systolic 124 BP Diastolic 60 Pulse Ox 08/01/22 12:21 08/01/22 12:21 08/01/22 12:26 Temperature Temperature Source Pulse Rate 94 Blood Pressure 143/91 H BP Systolic 143 BP Diastolic 91 Pulse Ox 100 08/01/22 12:26 08/01/22 12:26 08/01/22 12:31 Temperature Temperature Source Pulse Rate 98 Blood Pressure 128/72 H BP Systolic 128 BP Diastolic 72 Pulse Ox 98 08/01/22 12:31 08/01/22 12:31 08/01/22 12:31 Temperature Temperature Source Pulse Rate 86 90 Blood Pressure BP Systolic BP Diastolic Pulse Ox 99 08/01/22 12:36 08/01/22 12:36 08/01/22 12:36 Temperature Temperature Source Pulse Rate 91 Blood Pressure 133/72 H BP Systolic 133 BP Diastolic 72 Pulse Ox 100 08/01/22 12:39 08/01/22 12:39 08/01/22 12:41 Temperature Temperature Source Pulse Rate 109 H Blood Pressure 122/73 H BP Systolic 122 BP Diastolic 73 Pulse Ox 90 08/01/22 12:41 08/01/22 12:41 08/01/22 12:46 Temperature Temperature Source Pulse Rate 97 Blood Pressure 131/68 H BP Systolic 131 BP Diastolic 68 Pulse Ox 100 08/01/22 12:46 08/01/22 12:46 08/01/22 12:51 Temperature Temperature Source Pulse Rate 90 88 Blood Pressure BP Systolic BP Diastolic Pulse Ox 99 08/01/22 12:51 08/01/22 12:53 08/01/22 12:53 Temperature Temperature Source Pulse Rate 93 Blood Pressure 134/65 H BP Systolic 134 BP Diastolic 65 Pulse Ox 100 08/01/22 12:56 08/01/22 12:56 08/01/22 12:57 Temperature Temperature Source Pulse Rate 87 Blood Pressure 125/76 H BP Systolic 125 BP Diastolic 76 Pulse Ox 100 08/01/22 12:57 08/01/22 13:01 08/01/22 13:01 Temperature Temperature Source Pulse Rate 86 84 Blood Pressure BP Systolic BP Diastolic Pulse Ox 100 08/01/22 13:03 08/01/22 13:03 08/01/22 13:06 Temperature Temperature Source Pulse Rate 80 90 Blood Pressure 126/69 H BP Systolic 126 BP Diastolic 69 Pulse Ox 08/01/22 13:06 08/01/22 13:07 08/01/22 13:07 Temperature Temperature Source Pulse Rate 90 Blood Pressure 134/82 H BP Systolic 134 BP Diastolic 82 Pulse Ox 100 08/01/22 13:12 08/01/22 13:12 08/01/22 13:11 Temperature Temperature Source Pulse Rate 88 Blood Pressure 137/82 H BP Systolic 137 BP Diastolic 82 Pulse Ox 100 08/01/22 13:16 08/01/22 13:16 08/01/22 13:35 Temperature Temperature Source Pulse Rate 97 Blood Pressure 135/80 H 123/81 H BP Systolic 135 123 BP Diastolic 80 81 Pulse Ox 08/01/22 13:35 08/01/22 13:19 08/01/22 13:19 Temperature 97.2 F L Temperature Source Temporal Pulse Rate 101 H Blood Pressure BP Systolic BP Diastolic Pulse Ox 08/01/22 14:32 08/01/22 14:32 08/01/22 14:31 Temperature Temperature Source Temporal Pulse Rate 101 H Blood Pressure 141/69 H BP Systolic 141 BP Diastolic 69 Pulse Ox 08/01/22 14:33 08/01/22 14:33 08/01/22 14:31 Temperature 98.0 F Temperature Source Pulse Rate 95 Blood Pressure BP Systolic BP Diastolic Pulse Ox 99 08/01/22 14:48 08/01/22 14:48 Temperature Temperature Source Pulse Rate 89 Blood Pressure 145/67 H BP Systolic 145 BP Diastolic 67 Pulse Ox Weight Weight: 250 lb 3.2 oz Body Mass Index (BMI) 41.6 Physical Exam Const alert, oriented x3, no apparent distress and healthy appearing General Appearance: cooperative; Negative for anxious HEENT normocephalic Face and Sinus: normal facial exam Eyes EOMs intact bilaterally and no scleral icterus General Eye: normal appearance of both eyes Neck full ROM and supple Lymph Lymphatic: no lymphadenopathy noted Chest Chest: abnormal inspection of the chest Resp normal respiratory effort Effort and Inspection: able to speak in complete sentences Cardio regular rate GI soft to palpation and non-tender Inspection: gravid Palpation: soft; Negative for tender external exam normal Amniotic Fluid: ROM+plus Back/Spine no CVA tenderness Extremity normal to inspection, full ROM and no clubbing, cyanosis or edema General Extremity: Negative for calf tenderness or edema Skin Lesions: no lesions Rashes: no rashes Psych mental status grossly normal Labs Labs Labs: Blood Type O POSITIVE Antibody Screen NEGATIVE Hct 37.3 % (37-47) Hgb 12.2 g/dL (12.0-15.0) Pap Smear Negative Obstetrics US Syphilis Total Ab Non-reactive VZV IgG Antibody 1.00 index (Immune >1.09) L Rubella IgG Antibody Reactive (Nonreactive) Hep Bs Antigen Non-Reactive (Nonreactive) Chlamydia DNA (THEO) Negative (Negative) Neisseria gonorrhoeae DNA (THEO) Negative (Negative) HIV 1&2 Antibody Non-Reactive (Nonreactive) Glucose 1 Hr 50 gm 164 mg/dL (70-140) H Group B Strep DNA Negative (Negative) Rhogam given: No Miscellaneous Test Assessment & Plan (1) : QUALIFIERS: Weeks of gestation: 38 weeks Qualified Code(s): Z3A.38 - 38 weeks gestation of COMMENT: Anatomy US NL. discussed NIPT & Carrier testing patient prefers Doc only (2) Supervision of normal , antepartum: COMMENT: PRR , PAWAN 08/07/21, girl PC Lizeth & Kenneth (3) Sciatic nerve pain: COMMENT: tylenol, PT consult (4) Abnormal glucose affecting : COMMENT: Passed 3hr GTT (5) Obesity affecting : COMMENT: 1 TM GCT, encourage healthy weight gain plan for 36 week growth scan NSTs 34 weeks for bmi 40 growth scan 36 weeks, 07/13 growth US nl EFW 3378gms +/- 507gms 91st % (6) Abnormal glucose level: COMMENT: failed 1 hr GCT, 3 hr GTT ordered.,05/26 Nl 3 hr GTT. (7) Positive GBS test: COMMENT: PCN in labor PLAN: Plan Patient presents IAL, plan expectant management for , pitocin/AROM PRN if needed. Pain management: plans epidural. GBS positive plan IV PCN. Management of any complications: suspect LGA I have reviewed the [facility] and made any clinically relevant updates.
--- NOTE | 2022-08-01 14:58 | EX.PCM.OBRPT ---
Assessment & Plan (1) : QUALIFIERS: Weeks of gestation: 38 weeks Qualified Code(s): Z3A.38 - 38 weeks gestation of COMMENT: Anatomy US NL. discussed NIPT & Carrier testing patient prefers Doc only (2) Supervision of normal , antepartum: COMMENT: PRR , PAWAN 08/07/21, girl JONELLE Stanley & Kenneth (3) Sciatic nerve pain: COMMENT: tylenol, PT consult (4) Abnormal glucose affecting : COMMENT: Passed 3hr GTT (5) Obesity affecting : COMMENT: 1 TM GCT, encourage healthy weight gain plan for 36 week growth scan NSTs 34 weeks for bmi 40 growth scan 36 weeks, 07/13 growth US nl EFW 3378gms +/- 507gms 91st % (6) Abnormal glucose level: COMMENT: failed 1 hr GCT, 3 hr GTT ordered.,05/26 Nl 3 hr GTT. (7) Positive GBS test: COMMENT: PCN in labor Maternal Data Information PAWAN Calculator Estimated Delivery Date Method Current WG Current Estimate 08/07/22 LMP (Certain) 39w 1d Other Estimates 08/03/22 Ultrasound #1 39w 5d 08/11/22 Ultrasound #2 38w 4d Final PAWAN: 08/07/22 Final PAWAN Source: LMP [place] Doctor Who Attended Delivery: Dang Onofre Vaginal Delivery Maternal Presentation Maternal Presentation: Active Labor Operative Information Date of Procedure: 08/01/22 Pre-Operative Diagnosis: @ 39 weeks 1 day, active labor Post-Operative Diagnosis: @ 39 weeks 1 day, active labor Surgery / Procedure Performed: Spontaneous Vaginal Delivery Type of Anesthesia: Epidural Anesthesiologist: Floridalma Quiroz Estimated Blood Loss: 100cc Findings Description of Procedure: Patient began pushing and delivered the head in the ZAHRAA presentation. The head was delivered atraumatically . The anterior and posterior shoulders delivered with some assistance with mcrobert's maneuver and wood screw, very quickly and without complication followed by the rest of the and the infant was placed on the maternal abdomen. Delayed cord clamping was employed for approximately 60 seconds. Cord was clamped and cut and gentle traction was applied to the cord and the placenta delivered spontaneously immediately following it was noted to be intact with three-vessel cord. The perineum and vagina were inspected and noted to have a small right labial laceration. This was repaired with a 3-0 vicryl. EBL was 100 cc. Patient and tolerated delivery well. Presentation: Vertex Amniotic Membrane Rupture Type: Spontaneous Amniotic Fluid Description: Thick meconium Placental Delivery Description: Spontaneous Placenta Disposition: [facility] Cord Vessel Description: 3 Vessels Cord Entanglement: None Infant A Gender: Female (1 minute): 8 (5 minute): 9 Delayed Cord Clamping: Yes Post Vaginal Delivery Medications Given After Delivery: IV Pitocin and - (IM pitocin) Episiotomy Description: None Laceration: Vaginal Extension/lac Complication Complications: None Multi Select Codes Urinary/Genital Urinary/Genital CPT Codes: 98779 Vaginal Delivery+ Care([facility])
[2022-08-01] MEDS: Naproxen 500 MG Tablet PO (16:26)
[2022-08-02] VITALS (9 sets, daily range): BP systolic 119–137; BP diastolic 62–82; PULSE 82–94; RESP 14–18; TEMP 36.1–36.7; O2SAT 97–99
[2022-08-02] MEDS: Naproxen 500 MG Tablet PO ×3 (00:31→16:40)
[2022-08-02] MEDS: Benzocaine/Lanolin/Aloe Vera 1 SPRAY EACH TOPICAL (07:08)
--- NOTE | 2022-08-02 11:37 | PCM.PN.OB ---
Subjective Subjective Patient doing well without complaints.entered room to pt laying in bed holding . Tolerating PO. Ambulating and voiding without difficulty.mild bilateral swelling, back discomfort around epidural site.Feeding well. Denies chest pain, shortness of breath, calf pain, fevers, chills, lightheadedness. Objective Data Objective Data Vital Signs: Vital Signs Temp Pulse Resp BP Pulse Ox O2 Del Method 97.5 F L 93 16 129/79 H 99 Room Air 08/02/22 08:41 08/02/22 08:41 08/02/22 08:41 08/02/22 08:41 08/01/22 14:33 08/02/22 08:41 Oxygen Delivery Method Room Air Weight: 250 lb 3.2 oz Body Mass Index (BMI) 41.6 Intake & Output: Intake and Output for Last 24 Hours 07/31/22 08/01/22 08/02/22 23:59 23:59 23:59 Intake Total 705.00 / 705.00 Output Total 900 / 900 Balance -195.00 / -195.00 Lab / Micro Data Result Diagrams: 08/01/22 10:45 Labs: Laboratory Results - last 24 hr 08/01/22 10:45: Blood Type O POSITIVE, Antibody Screen NEGATIVE Physical Exam Const alert, oriented x3 and no apparent distress Neck full ROM Lymph Lymphatic: no lymphadenopathy noted Chest inspection of chest normal Resp normal respiratory effort, normal air movement and no retractions Cardio regular rate and regular rhythm GI normal to inspection, nondistended, normoactive bowel sounds GI Narrative: fundus firm at u, mild lochia. no clots. Back/Spine normal ROM Back/Spine Narrative: tenderness to epidural site Extremity normal capillary refill Extremity Narrative: +2 pedal edema, non pitting Neuro oriented x3 Psych mental status grossly normal Assessment & Plan (1) (spontaneous vaginal delivery): COMMENT: IAL, girl Helen. JV PLAN: s/p PPD # 1 1. routine post delivery care 2. breast feeding- support given 3. rh positive 4. rubella immune 5. plan d/c home tomorrow
[2022-08-03] VITALS (7 sets, daily range): BP systolic 116–132; BP diastolic 59–80; PULSE 83–93; RESP 18–20; TEMP 36.6–36.9; O2SAT 97–98
--- NOTE | 2022-08-03 08:03 | PCM.PN.OB ---
Subjective Subjective Patient doing well without complaints. Tolerating PO. Ambulating and voiding without difficulty. Feeding well. Denies chest pain, shortness of breath, calf pain/swelling, fevers, chills, lightheadedness. Objective Data Objective Data Vital Signs: Vital Signs Temp Pulse Resp BP Pulse Ox O2 Del Method 97.9 F 85 18 124/59 H 97 Room Air 08/03/22 01:20 08/03/22 01:26 08/03/22 01:20 08/03/22 01:26 08/03/22 01:26 08/03/22 01:20 Oxygen Delivery Method Room Air Weight: 250 lb 3.2 oz Body Mass Index (BMI) 41.6 Intake & Output: Intake and Output for Last 24 Hours 08/01/22 08/02/22 08/03/22 23:59 23:59 23:59 Intake Total 705.00 / 705.00 Output Total 900 / 900 Balance -195.00 / -195.00 Lab / Micro Data Result Diagrams: 08/01/22 10:45 Physical Exam Const alert and oriented x3 HEENT normocephalic Eyes PERRL Neck full ROM Resp normal respiratory effort GI soft to palpation GI Narrative: FF below U Assessment & Plan (1) (spontaneous vaginal delivery): COMMENT: IAL, girl Helen. JV PLAN: Plan s/p PPD # 2 1. routine post delivery care 2. breast feeding- support given 3. rh positive 4. rubella immune 5. home today
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
[2022-08-03] MEDS: Naproxen 500 MG Tablet PO ×2 (13:16→21:20)
[2022-08-04 02:26] VITALS: BP 130/75; PULSE 86; RESP 20; TEMP 37; O2SAT 99
--- NOTE | 2022-08-04 07:30 | NURSING ---
report given to Kristi Foley RN who is assuming care of pt at this time
[2022-08-04 08:56] VITALS: BP 127/73; PULSE 92
[2022-08-04] MEDS: Naproxen 500 MG Tablet PO (09:10)
[2022-08-04 09:17] VITALS: BP 127/73; PULSE 92; RESP 18; TEMP 37.1
--- NOTE | 2022-08-04 10:11 | PCM.PN.OB ---
Subjective Subjective Patient doing well without complaints. Tolerating PO. Ambulating and voiding without difficulty. Feeding well. Denies chest pain, shortness of breath, calf pain/swelling, fevers, chills, lightheadedness. Objective Data Objective Data Vital Signs: Vital Signs Temp Pulse Resp BP Pulse Ox O2 Del Method 98.7 F 92 18 127/73 H 99 Room Air 08/04/22 09:17 08/04/22 09:17 08/04/22 09:17 08/04/22 09:17 08/04/22 02:26 08/04/22 09:17 Oxygen Delivery Method Room Air Weight: 250 lb 3.2 oz Body Mass Index (BMI) 41.6 Lab / Micro Data Result Diagrams: 08/01/22 10:45 Physical Exam Const alert and oriented x3 HEENT normocephalic Eyes PERRL Neck full ROM Resp normal respiratory effort GI soft to palpation GI Narrative: FF below U Extremity Extremity Narrative: +2 pedal edema Skin no rashes or lesions noted Neuro oriented x3 Psych mental status grossly normal Assessment & Plan (1) (spontaneous vaginal delivery): COMMENT: JENNIFER girl Helen. JV PLAN: s/p PPD # 3 1. routine post delivery care 2. breast feeding- support given 3. rh positive 4. rubella immune 5. d/c home today
== END 2022-08-04 10:20 | disposition home or self-care (01) | DRG 560 ==
PROVIDERS: Admitting Provider Registered Nurse; PCP Internal Medicine; Visit Provider Registered Nurse
DX: O99.824 Streptococcus B carrier state complicating childbirth (principal); Z37.0 Single live birth; O77.0 Labor and delivery complicated by meconium in amniotic fluid; O99.214 Obesity complicating childbirth; O70.0 First degree perineal laceration during delivery; Z3A.39 39 weeks gestation of pregnancy
CPT/HCPCS: 59025; 59050; 85025; 86850; 86900; 86901; 99221; J7120; G0378

== ENCOUNTER 2023-01-24 20:00 | Outpatient (CLI) | payer MEDICAID, SELFPAY | END 2023-01-24 23:59 | disposition home or self-care (01) | PROVIDERS: PCP Internal Medicine; Referring Provider Internal Medicine; Visit Provider Internal Medicine | DX: Z71.3 Dietary counseling and surveillance (principal); G47.10 Hypersomnia, unspecified; E66.9 Obesity, unspecified; Z68.37 Body mass index [BMI] 37.0-37.9, adult | CPT/HCPCS: 95811; 97802 ==

== ENCOUNTER → 2023-01-25 | Outpatient (CLI) | payer MEDICAID, SELFPAY ==
[2023-01-25 08:45] LABS: Hemoglobin A1c 5.8 % (3.8-5.6)
== END | disposition home or self-care (01) ==
LOC: LAB 06:29
PROVIDERS: PCP Internal Medicine; Referring Provider Internal Medicine; Visit Provider Internal Medicine
DX: E66.9 Obesity, unspecified (principal)
CPT/HCPCS: 36415; 83036

== ENCOUNTER → 2023-02-01 | Outpatient (CLI) | payer MEDICAID, SELFPAY | END | disposition home or self-care (01) | LOC: SL 09:19 | PROVIDERS: PCP Internal Medicine; Visit Provider Internal Medicine | DX: Z00.00 Encounter for general adult medical examination without abnormal findings (principal) ==

== ENCOUNTER 2023-02-08 11:30 | Outpatient (RCR) | payer MEDICAID, SELFPAY | END 2023-02-17 23:59 | LOC: NS 11:30 | PROVIDERS: PCP Internal Medicine; Referring Provider Internal Medicine; Visit Provider Internal Medicine | DX: Z71.3 Dietary counseling and surveillance (principal); E66.9 Obesity, unspecified; Z68.37 Body mass index [BMI] 37.0-37.9, adult | CPT/HCPCS: 97802; 97803 ==

== ENCOUNTER 2023-03-14 09:31 | Outpatient (RCR) | payer MEDICAID, SELFPAY | END 2023-03-19 23:59 | LOC: NS 09:31 | PROVIDERS: PCP Internal Medicine; Referring Provider Internal Medicine; Visit Provider Internal Medicine | DX: Z71.3 Dietary counseling and surveillance (principal); E66.9 Obesity, unspecified; Z68.37 Body mass index [BMI] 37.0-37.9, adult | CPT/HCPCS: 97803 ==

== ENCOUNTER 2023-03-30 09:27 | Outpatient (RCR) | payer MEDICAID, SELFPAY | END 2023-04-19 23:59 | LOC: NS 09:27 | PROVIDERS: PCP Internal Medicine; Referring Provider Internal Medicine; Visit Provider Internal Medicine | DX: Z71.3 Dietary counseling and surveillance (principal); E66.9 Obesity, unspecified; Z68.36 Body mass index [BMI] 36.0-36.9, adult | CPT/HCPCS: 97803 ==

== ENCOUNTER → 2023-10-26 | Outpatient (CLI) | payer MEDICAID, SELFPAY ==
[2023-11-01 14:09] LABS: HPV APTIMA, High Risk Negative (Negative)
== END | disposition home or self-care (01) ==
LOC: LABSPEC 16:39
PROVIDERS: PCP Internal Medicine; Referring Provider Obstetrics & Gynecology; Visit Provider Obstetrics & Gynecology
DX: Z12.4 Encounter for screening for malignant neoplasm of cervix (principal)
CPT/HCPCS: 87624; 88175; G0145

== ENCOUNTER → 2024-07-13 | Outpatient (CLI) | payer MEDICAID, SELFPAY ==
[2024-07-13 10:07] LABS: Bacteria 0 SEEN /hpf (None Seen); Mucous, Urine 0 SEEN /hpf (<or=2+); White Blood Cells 0 SEEN /hpf (0-5)
[2024-07-13 11:55] LABS: Color, Urine Yellow (Yellow); Glucose, Dipstick Normal (Normal); Ketone-Dipstick Negative (Negative); Leukocyte Esterase-Dipstick Negative /ul (Negative); Nitrite-Dipstick Negative (Negative); Occult Blood-Urine 150 /ul (Negative); Protein-Dipstick Negative (Negative); Specific Gravity, Urine 1.015 (1.002-1.030); Urine Bilirubin Dipstick Negative (Negative); Urine Clarity Clear (Clear); Urine Urobilinogen Normal (Normal); Urine pH 6.5 (5.0 - 8.0)
[2024-07-13 12:23] LABS: Anion Gap 5 (5-15); BUN 17 mg/dL (7-18); BUN/Creat Ratio 20.8 RATIO (10-20); Calcium,Total 9.2 mg/dL (8.5-10.1); Chloride 106 mmol/L (98-107); Creatinine, Serum 0.82 mg/dL (0.55-1.02); EST Glomerular Filtration Rate 85 mL/min (>60); Est Glom Filt Rate - Afr Amer 103 mL/min (>60); Glucose 115 mg/dL (74-106); Potassium 4.5 mmol/L (3.5-5.1); Sodium Level 139 mmol/L (136-145)
[2024-07-13 13:09] LABS: Red Blood Cells-Urine 0-5 SEEN /hpf (0-5); Squamous Epithelial Cells - UA 0-5 SEEN /hpf (5-10)
[2024-07-16 08:39] LABS: Hemoglobin A1c 5.4 % (3.8-5.6)
== END | disposition home or self-care (01) ==
LOC: BIMLAB 09:00
PROVIDERS: PCP Internal Medicine; Referring Provider Internal Medicine; Visit Provider Internal Medicine
DX: R31.9 Hematuria, unspecified (principal); R73.9 Hyperglycemia, unspecified
CPT/HCPCS: 36415; 80048; 81001; 83036

== ENCOUNTER 2024-09-21 10:22 | Emergency (ER) | payer OTHER, MEDICAID, SELFPAY ==
[2024-09-21 10:22] VITALS: BP 163/100; PULSE 80; RESP 16; TEMP 35.6; O2SAT 98; BMI 44.3
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
[2024-09-21] MEDS: Erythromycin Base 1 OPTH.TUBE 1 APPLIC EACH EYE (11:08)
== END 2024-09-21 11:13 | disposition home or self-care (01) ==
PROVIDERS: Emergency Provider Emergency Medicine; PCP Internal Medicine; Visit Provider Emergency Medicine
DX: T65.93XA Toxic effect of unspecified substance, assault, initial encounter (principal); H10.213 Acute toxic conjunctivitis, bilateral; Y99.0 Civilian activity done for income or pay; I10 Essential (primary) hypertension
CPT/HCPCS: 99282

== ENCOUNTER → 2024-12-19 | Outpatient (CLI) | payer MEDICAID, SELFPAY | END | disposition home or self-care (01) | LOC: BWCLAB 15:10 | PROVIDERS: PCP Internal Medicine; Visit Provider Obstetrics & Gynecology | DX: N89.8 Other specified noninflammatory disorders of vagina (principal) | CPT/HCPCS: 87070; 87205 ==